=== PATIENT | female | born 1985 | race Caucasian/White ===

== ENCOUNTER 2016-09-03 14:06 | Inpatient (IN) | payer BC, OTHER ==
[2016-09-03 16:33] LABS: Appearance,Urine Clear (Clear); Basophils % (A) 1 %; Bilirubin,Urine Negative (Negative); CH 26.9; CHCM 32.5; Eosinophils # (A) 0.1 k/uL (0-0.7); Eosinophils % (A) 2 %; Glucose,Urine (UA) Negative (Negative); HCT 27.8 % (34.0-46.0); HDW 3.66; HGB 9.1 gm/dL (11.4-16.0); Hypochromasia Slight; Ketones,Urine Negative (Negative); Leukocyte Esterase,Urine Negative (Negative); Luc # (Auto) 0.11; Luc % (Auto) 3; Lymphocytes # (A) 1.2 k/uL (1.0-4.8); Lymphocytes % (A) 30 %; MCH 27.1 pg (25.0-35.0); MCHC 32.6 g/dL (31.0-37.0); MCV 83.3 fL (80.0-100.0); Mean Platelet Volume 6.9; Monocytes # (A) 0.2 k/uL (0-1.0); Monocytes % (A) 4 %; Neutrophils # (A) 2.4 k/uL (1.3-7.7); Neutrophils % (A) 60 %; Nitrite,Urine Negative (Negative); Poikilocytosis Slight; Protein,Urine Negative (Negative); RBC 3.34 m/uL (3.80-5.40); RDW 15.2 % (11.5-15.5); Specific Gravity,Urine 1.006 (1.001-1.035); UA Billing (MACRO vs. MICRO) CHEM; Urobilinogen,Urine <2.0 mg/dL (<2.0); WBC (Perox) 4.53
[2016-09-03 16:41] LABS: INR 1.2 (<1.1); Partial Thromboplastin Time 31.6 sec (22.0-30.0); Prothrombin Time 11.9 sec (9.0-12.0)
[2016-09-03 16:44] LABS: ALT 30 U/L (9-52); AST 26 U/L (14-36); Alkaline Phosphatase 115 U/L (38-126); Anion Gap 9 mmol/L; Blood Urea Nitrogen 17 mg/dL (7-17); Calcium 9.4 mg/dL (8.4-10.2); Carbon Dioxide 30 mmol/L (22-30); Chloride 99 mmol/L (98-107); Glucose 216 mg/dL (74-99); Non-African American GFR(MDRD) 53 (>60 ml/min/1.73 sqM); Potassium 5.1 mmol/L (3.5-5.1); Sodium 138 mmol/L (137-145); Total Bilirubin 0.4 mg/dL (0.2-1.3)
--- NOTE | 2016-09-03 16:58 | XR ---
EXAMINATION TYPE: XR chest 2V DATE OF EXAM: 09/03/2016 4:40 PM COMPARISON: NONE HISTORY: Swelling, shortness of breath TECHNIQUE: Frontal and lateral views of the chest are obtained. FINDINGS: The heart appears enlarged. No pneumonia, pneumothorax, or pleural effusion. Central vascu larity, interstitium are somewhat prominently. Lung volumes somewhat low. IMPRESSION: Suspected expiratory exam, difficult to exclude pulmonary venous hypertension and inters titial edema. Correlate, follow-up is recommended.
[2016-09-03] MEDS ORDERED: SODIUM CHLORIDE 0.9% 500 ML IV STA (18:03)
[2016-09-03] MEDS ORDERED: ACETAMINOPHEN IV (For NPO) 1,000 MG in EMPTY BAG 1 BAG IVPB STA (18:03)
[2016-09-03] MEDS ORDERED: NALOXONE 0.4 MG/ML 1 ML VIAL IV PRN (18:05)
--- NOTE | 2016-09-03 18:23 | ED ---
General Adult HPI - General Chief complaint: Shortness of Breath Stated complaint: NERIS Time Seen by Provider: 09/03/16 15:08 Source: patient Mode of arrival: ambulatory Limitations: no limitations - History of Present Illness Initial comments: 31-year-old female presenting for evaluation of diffuse edema for the last week and one day of chest tightness. She states that over the last week she has gained about 20 pounds and that the swelling is across her lower extremities abdomen chest and upper extremities. She also states she feels it in her face but it's not making her skin as tight as everywhere else. She was admitted to [facility] a couple weeks ago for infection management to an abscess to the left and the right arms that had progressed following I&D. She also states that in June she was admitted to a third hospital where she had an abscess to her skull and became septic to the point of requiring intubation and admission for a month. She has a long-standing history of IV drug abuse and is being seen at [place]. - Related Data Home Medications Medication Instructions Recorded Confirmed ALPRAZolam [Xanax] 1 mg PO TID PRN 09/03/16 09/03/16 Acetaminophen Tab [Tylenol Tab] 650 mg PO Q4H PRN 09/03/16 09/03/16 Gabapentin [Neurontin] 300 mg PO TID 09/03/16 09/03/16 PARoxetine HCL [Paxil] 60 mg PO DAILY 09/03/16 09/03/16 Pregabalin [Lyrica] 100 mg PO HS 09/03/16 09/03/16 QUEtiapine [SEROquel] 50 mg PO TID 09/03/16 09/03/16 QUEtiapine [SEROquel] 100 mg PO HS 09/03/16 09/03/16 Sulfamethox-Tmp 800-160Mg [Bactrim 1 tab PO Q12HR 09/03/16 09/03/16 DS 800-160 mg] Allergies Allergy/AdvReac Type Severity Reaction Status Date / Time ceftriaxone [From Rocephin] Allergy Rash/Hives Verified 09/03/16 15:29 codeine Allergy Rash/Hives Verified 09/03/16 15:29 Penicillins Allergy Rash/Hives Verified 09/03/16 15:29 prochlorperazine Allergy Rash/Hives Verified 09/03/16 15:29 [From Compazine] Review of Systems ROS Statement: Those systems with pertinent positive or pertinent negative responses have been documented in the HPI. General: Patient denies fever, chills,nausea, or vomiting. HEENT: No visual changes. No eye pain. No nasal symptoms. No dysphagia.No odynophagia. No ENT pain. Cardiac: One day of chest heaviness. No palpitations. Diffuse edema. Pulmonary; No dyspnea. Denies cough. GI: No abdominal pain. No diarrhea. No constipation. No bowel habit changes. No melena. No hematochezia. See general. : No dysuria.No hematuria. No hesitancy. No urgency. No renal lithiasis history. Musculoskeletal: No musculoskeletal pain. Orthopedic: Denies fracture history. Integumentary: Denies rash. Denies pruritis. Healing/scarred abscess post I&D to the dorsal hand on the right and the ventral wrist on the left. There is also a shaved spot on her left parietal skull where she had an I&D in July. Neurologic: Denies any lateralizing weakness. Denies numbness. Denies tingling. No seizure activity. Denies TIA or CVA. Heme/Onc: Denies anemia. Denies cancer. Denies adenopathy. ROS Other: All systems not noted in ROS Statement are negative. Past Medical History Past Medical History: Diabetes Mellitus History of Any Multi-Drug Resistant Organisms: MRSA Date of last positivie culture/infection: 2015 MDRO Source:: Skin Past Surgical History: Section, Cholecystectomy Past Psychological History: Anxiety, Bipolar, Depression, Panic Disorder, PTSD Smoking Status: Current every day smoker Past Alcohol Use History: None Reported Past Drug Use History: Heroin General Exam - General Exam Comments Initial Comments: General: The patient is awake and alert, in mild distress. Eye: Pupils are equal, round and reactive to light, extra-ocular movements are intact; there is normal conjunctiva bilaterally. No signs of icterus. Ears, nose, mouth and throat: There are moist mucous membranes and no oral lesions. Neck: The neck is supple, there is no tenderness or JVD. Cardiovascular: There is a regular rate and rhythm. No rub or gallop is appreciated but there is a holosystolic murmur. There is diffuse, tight edema to the bilateral lower extremities and upper extremities. Tenderness to palpation of the abdomen with less noticeable edema in the periphery. Respiratory: Lungs are clear to auscultation, respirations are non-labored, breath sounds are equal. No wheezes, stridor, rales, or rhonchi. Gastrointestinal: Soft, non-distended, mildly tender abdomen without masses or organomegaly noted. There is no rebound or guarding present. No CVA tenderness. Bowel sounds are unremarkable. Back: There is no tenderness to palpation in the midline. There is no obvious deformity. No rashes noted. Musculoskeletal: Normal ROM, no tenderness. Sensation intact. Pulses equal bilaterally 2+. Neurological: CN II-XII intact, There are no obvious motor or sensory deficits. Coordination appears grossly intact. Speech is normal. Skin: Skin is warm and dry and no rashes or lesions are noted. Psychiatric: Cooperative, appropriate mood & affect, normal judgment. Limitations: no limitations Course Vital Signs 09/03/16 09/03/16 09/03/16 14:18 17:24 18:00 Temperature 97.5 F L 97.3 F L Pulse Rate 102 H 82 82 Respiratory 20 16 18 Rate Blood Pressure 103/60 86/49 88/51 O2 Sat by Pulse 96 92 L 95 Oximetry 09/03/16 09/03/16 09/03/16 18:13 21:56 23:34 Temperature 98.1 F Pulse Rate 80 85 95 Respiratory 16 18 16 Rate Blood Pressure 97/56 104/85 83/46 O2 Sat by Pulse 94 L 98 97 Oximetry EKG Findings - EKG Comments: EKG Findings:: EKG shows normal sinus rhythm with a ventricular rate of 85, KINGS 164, QRS 80, QT/QTc 380/452 Medical Decision Making - Medical Decision Making 31-year-old female with past medical history of IV drug abuse and being treated currently at [place] presented for evaluation of diffuse edema for the last week and chest heaviness for the last day. She states that her symptoms began gradually but since then she has gained about 20 pounds and her extremities feel tight due to all the swelling. She has multiple previous admissions for abscesses that had complications once in July requiring admission and ICU treatment due to respiratory failure and then once again a couple weeks ago for failed incision and drainage. Physical examination reveals diffuse edema throughout that is tender to palpation. She has scars from previous abscess incision and drainage as noted in the review of systems and physical exam. There are no new or acute abscesses noted on physical exam. We'll obtain labs, EKG, chest x-ray. Patient reevaluated and had improvement in symptoms. Chest x-ray showed suspected expiratory exam that was difficult to exclude pulmonary venous hypertension and interstitial edema. Concern for infective endocarditis given her cardiac murmur and history of IV heroin abuse. Will send blood cultures and start empiric ABX therapy. The patient was informed of these results and that she would be admitted for further evaluation. Nevaeh Cheng NP was updated on the status of the patient and she accepted the admission for Dr. Godinez without further request. Admission order placed, bed request submitted. - Lab Data Result diagrams: 09/03/16 15:55 09/03/16 15:55 Lab Results 09/03/16 09/03/16 09/03/16 Range/Units 15:55 15:55 15:55 WBC 4.0 (3.8-10.6) k/uL RBC 3.34 L (3.80-5.40) m/uL Hgb 9.1 L (11.4-16.0) gm/dL Hct 27.8 L (34.0-46.0) % MCV 83.3 (80.0-100.0) fL MCH 27.1 (25.0-35.0) pg MCHC 32.6 (31.0-37.0) g/dL RDW 15.2 (11.5-15.5) % Plt Count 382 (150-450) k/uL Neutrophils % 60 % Lymphocytes % 30 % Monocytes % 4 % Eosinophils % 2 % Basophils % 1 % Neutrophils # 2.4 (1.3-7.7) k/uL Lymphocytes # 1.2 (1.0-4.8) k/uL Monocytes # 0.2 (0-1.0) k/uL Eosinophils # 0.1 (0-0.7) k/uL Basophils # 0.0 (0-0.2) k/uL Hypochromasia Slight Poikilocytosis Slight PT (9.0-12.0) sec INR (<1.1) APTT (22.0-30.0) sec Sodium 138 (137-145) mmol/L Potassium 5.1 (3.5-5.1) mmol/L Chloride 99 (98-107) mmol/L Carbon Dioxide 30 (22-30) mmol/L Anion Gap 9 mmol/L BUN 17 (7-17) mg/dL Creatinine 1.18 H (0.52-1.04) mg/dL Est GFR (MDRD) Af Amer >60 (>60 ml/min/1.73 sqM) Est GFR (MDRD) Non-Af 53 (>60 ml/min/1.73 sqM) Glucose 216 H (74-99) mg/dL Calcium 9.4 (8.4-10.2) mg/dL Total Bilirubin 0.4 (0.2-1.3) mg/dL AST 26 (14-36) U/L ALT 30 (9-52) U/L Alkaline Phosphatase 115 (38-126) U/L Troponin I (0.000-0.034) ng/mL NT-Pro-B Natriuret Pep 826 pg/mL Total Protein 7.0 (6.3-8.2) g/dL Albumin 3.5 (3.5-5.0) g/dL Urine Color Urine Appearance (Clear) Urine pH (5.0-8.0) Ur Specific [place] (1.001-1.035) Urine Protein (Negative) Urine Glucose (UA) (Negative) Urine Ketones (Negative) Urine Blood (Negative) Urine Nitrate (Negative) Urine Bilirubin (Negative) Urine Urobilinogen (<2.0) mg/dL Ur Leukocyte Esterase (Negative) Influenza Type A RNA (Not Detectd) Influenza Type B (PCR) (Not Detectd) 09/03/16 09/03/16 09/03/16 Range/Units 15:55 15:55 15:55 WBC (3.8-10.6) k/uL RBC (3.80-5.40) m/uL Hgb (11.4-16.0) gm/dL Hct (34.0-46.0) % MCV (80.0-100.0) fL MCH (25.0-35.0) pg MCHC (31.0-37.0) g/dL RDW (11.5-15.5) % Plt Count (150-450) k/uL Neutrophils % % Lymphocytes % % Monocytes % % Eosinophils % % Basophils % % Neutrophils # (1.3-7.7) k/uL Lymphocytes # (1.0-4.8) k/uL Monocytes # (0-1.0) k/uL Eosinophils # (0-0.7) k/uL Basophils # (0-0.2) k/uL Hypochromasia Poikilocytosis PT 11.9 (9.0-12.0) sec INR 1.2 (<1.1) APTT 31.6 H (22.0-30.0) sec Sodium (137-145) mmol/L Potassium (3.5-5.1) mmol/L Chloride (98-107) mmol/L Carbon Dioxide (22-30) mmol/L Anion Gap mmol/L BUN (7-17) mg/dL Creatinine (0.52-1.04) mg/dL Est GFR (MDRD) Af Amer (>60 ml/min/1.73 sqM) Est GFR (MDRD) Non-Af (>60 ml/min/1.73 sqM) Glucose (74-99) mg/dL Calcium (8.4-10.2) mg/dL Total Bilirubin (0.2-1.3) mg/dL AST (14-36) U/L ALT (9-52) U/L Alkaline Phosphatase (38-126) U/L Troponin I <0.012 (0.000-0.034) ng/mL NT-Pro-B Natriuret Pep pg/mL Total Protein (6.3-8.2) g/dL Albumin (3.5-5.0) g/dL Urine Color Urine Appearance (Clear) Urine pH (5.0-8.0) Ur Specific [place] (1.001-1.035) Urine Protein (Negative) Urine Glucose (UA) (Negative) Urine Ketones (Negative) Urine Blood (Negative) Urine Nitrate (Negative) Urine Bilirubin (Negative) Urine Urobilinogen (<2.0) mg/dL Ur Leukocyte Esterase (Negative) Influenza Type A RNA Not Detected (Not Detectd) Influenza Type B (PCR) Not Detected (Not Detectd) 09/03/16 Range/Units 15:55 WBC (3.8-10.6) k/uL RBC (3.80-5.40) m/uL Hgb (11.4-16.0) gm/dL Hct (34.0-46.0) % MCV (80.0-100.0) fL MCH (25.0-35.0) pg MCHC (31.0-37.0) g/dL RDW (11.5-15.5) % Plt Count (150-450) k/uL Neutrophils % % Lymphocytes % % Monocytes % % Eosinophils % % Basophils % % Neutrophils # (1.3-7.7) k/uL Lymphocytes # (1.0-4.8) k/uL Monocytes # (0-1.0) k/uL Eosinophils # (0-0.7) k/uL Basophils # (0-0.2) k/uL Hypochromasia Poikilocytosis PT (9.0-12.0) sec INR (<1.1) APTT (22.0-30.0) sec Sodium (137-145) mmol/L Potassium (3.5-5.1) mmol/L Chloride (98-107) mmol/L Carbon Dioxide (22-30) mmol/L Anion Gap mmol/L BUN (7-17) mg/dL Creatinine (0.52-1.04) mg/dL Est GFR (MDRD) Af Amer (>60 ml/min/1.73 sqM) Est GFR (MDRD) Non-Af (>60 ml/min/1.73 sqM) Glucose (74-99) mg/dL Calcium (8.4-10.2) mg/dL Total Bilirubin (0.2-1.3) mg/dL AST (14-36) U/L ALT (9-52) U/L Alkaline Phosphatase (38-126) U/L Troponin I (0.000-0.034) ng/mL NT-Pro-B Natriuret Pep pg/mL Total Protein (6.3-8.2) g/dL Albumin (3.5-5.0) g/dL Urine Color Light Yellow Urine Appearance Clear (Clear) Urine pH 7.0 (5.0-8.0) Ur Specific [place] 1.006 (1.001-1.035) Urine Protein Negative (Negative) Urine Glucose (UA) Negative (Negative) Urine Ketones Negative (Negative) Urine Blood Negative (Negative) Urine Nitrate Negative (Negative) Urine Bilirubin Negative (Negative) Urine Urobilinogen <2.0 (<2.0) mg/dL Ur Leukocyte Esterase Negative (Negative) Influenza Type A RNA (Not Detectd) Influenza Type B (PCR) (Not Detectd) Disposition Clinical Impression: Edema, Hyperglycemia Disposition: ADMITTED IP TO THIS HOSP Condition: Stable Decision to Admit Reason: Admit from EC Decision Date: 09/03/16 Decision Time: 18:23
[2016-09-03] MEDS: QUEtiapine 50 MG TAB PO SCH ×2 (21:22→21:49)
[2016-09-03] MEDS: PREGABALIN 100 MG CAP PO SCH (21:49)
[2016-09-03] MEDS: GABAPENTIN 300 MG CAP PO SCH (21:50)
[2016-09-03] MEDS: SULFAMETHOX-TMP 800-160MG 1 EACH TAB PO SCH (21:50)
[2016-09-03] MEDS: KETOROLAC 30 MG/ML 1 ML VIAL IVP PRN (21:54)
[2016-09-03] MEDS ORDERED: IV VANCOMYCIN PER PHARMACY 1 EACH MISC MISCELLANE PRN (23:59)
[2016-09-04] MEDS ORDERED: VANCOMYCIN 1,250 MG in SODIUM CHLORIDE 0.9% 250 ML IVPB SCH ×2 (06:30→08:00)
[2016-09-04 07:52] LABS: Calcium 8.8 mg/dL (8.4-10.2); Potassium 5.6 mmol/L (3.5-5.1)
[2016-09-04 08:16] LABS: Basophils # (A) 0.1 k/uL (0-0.2); Basophils % (A) 1 %; CH 26.4; CHCM 30.3; Eosinophils # (A) 0.1 k/uL (0-0.7); Eosinophils % (A) 3 %; HCT 28.1 % (34.0-46.0); HDW 3.49; HGB 8.9 gm/dL (11.4-16.0); Hypochromasia Marked; Luc % (Auto) 2; Lymphocytes % (A) 24 %; MCH 27.7 pg (25.0-35.0); MCHC 31.6 g/dL (31.0-37.0); MCV 87.7 fL (80.0-100.0); Mean Platelet Volume 6.8; Monocytes # (A) 0.2 k/uL (0-1.0); Monocytes % (A) 5 %; Neutrophils # (A) 2.8 k/uL (1.3-7.7); Neutrophils % (A) 66 %; Poikilocytosis Slight; WBC 4.3 k/uL (3.8-10.6); WBC (Perox) 4.21
[2016-09-04] MEDS: SULFAMETHOX-TMP 800-160MG 1 EACH TAB PO SCH (09:00)
[2016-09-04] MEDS: QUEtiapine 50 MG TAB PO SCH ×4 (09:01→21:15)
[2016-09-04] MEDS: PARoxetine 20 MG TAB PO SCH (09:01)
[2016-09-04] MEDS: GABAPENTIN 300 MG CAP PO SCH ×3 (09:02→21:42)
[2016-09-04] MEDS: ALPRAZolam 0.5 MG TAB PO PRN ×3 (09:06→21:15)
[2016-09-04] MEDS: KETOROLAC 30 MG/ML 1 ML VIAL IVP PRN (09:07)
[2016-09-04] MEDS ORDERED: ALPRAZolam 0.5 MG TAB PO ONE (09:30)
[2016-09-04] MEDS ORDERED: BENZOCAINE/MENTHOL LOZENG 1 EACH LOZENGE MUCOUS MEM PRN (11:15)
[2016-09-04 13:08] LABS: Glucose,Whole Blood 322 mg/dL (75-99)
[2016-09-04] MEDS: INSULIN LISPRO (humaLOG) 300 UNIT/3 ML VIAL SQ SCH ×3 (13:14→21:14)
--- NOTE | 2016-09-04 13:57 | XR ---
EXAMINATION TYPE: XR chest 2V DATE OF EXAM: 09/04/2016 1:39 PM COMPARISON: 09/03/2016 HISTORY: Chest pain TECHNIQUE: Frontal and lateral views of the chest are obtained. FINDINGS: No evidence for pnuemothorax.No pleural effusion. Persistent mild cardiomegaly with interstitial prominence throughout both lung milan. Mild patchy de nsities are noted at the lung bases. The osseous structures are grossly intact. IMPRESSION: 1. Findings may reflect interstitial edema with pulmonary venous congestion. Interstitial process of other etiology is not excluded. Correlate clinically and progress studies are recommended.
[2016-09-04 14:15] LABS: Hemoglobin A1C 8.9 % (4.2-6.1)
[2016-09-04] MEDS ORDERED: ACETAMINOPHEN IV (For NPO) 1,000 MG in EMPTY BAG 1 BAG IVPB PRN (15:30)
[2016-09-04] MEDS: FUROSEMIDE 10 MG/ML 4 ML VIAL IV SCH (17:00)
[2016-09-04 17:26] LABS: Glucose,Whole Blood 208 mg/dL (75-99)
[2016-09-04] MEDS ORDERED: IPRATROPIUM 0.5 MG/2.5 ML NEBU INHALATION PRN (19:37)
[2016-09-04] MEDS ORDERED: LEVALBUTEROL NEB (CONC) 1.25 MG/0.5 ML AMP INHALATION PRN (19:38)
[2016-09-04] MEDS: LEVALBUTEROL NEB (CONC) 1.25 MG/0.5 ML AMP INHALATION SCH (19:58)
[2016-09-04] MEDS: IPRATROPIUM 0.5 MG/2.5 ML NEBU INHALATION SCH (19:58)
[2016-09-04] MEDS ORDERED: LEVALBUTEROL NEB (CONC) 1.25 MG/0.5 ML AMP INHALATION SCH (20:00)
[2016-09-04 21:14] LABS: Glucose,Whole Blood 261 mg/dL (75-99)
[2016-09-04] MEDS: PREGABALIN 100 MG CAP PO SCH (21:15)
--- NOTE | 2016-09-04 22:12 | HP ---
DATE OF ADMISSION: 09/03/2016 CHIEF COMPLAINT: Shortness of breath and generalized weakness. HISTORY OF PRESENT ILLNESS: This 31-year-old woman with a past medical history of multiple medical problems including diabetes mellitus, history of blood clots according to her, skull abscess, incision and drainage, history of MRSA, history of cholecystectomy, history of anxiety, history of bipolar depression, manic with polysubstance abuse is currently a resident of [place]. From [place], the patient was taken to [facility] with complaints of shortness of breath. The patient also apparently was gaining weight and developed generalized edema as well. The patient gained about 20 pounds. Because of increasing difficulty, the patient came to [facility] and was admitted to the hospital for further evaluation and treatment. The patient has right arm abscess. The patient was also admitted to [facility] recently because of the management of the above multiple medical issues. The patient has longstanding history of IV drug abuse. There is no history of fever, rigors or chills. No history of headache, loss of consciousness or seizures. PAST MEDICAL HISTORY: Diabetes type 2, history of blood clots, MRSA, anxiety, bipolar, depression, panic disorder, PTSD. Medications more prior to admission: 1. Tylenol 650 q.4 p.r.n. 2. Bactrim DS one p.o. b.i.d. 3. Seroquel 50 mg t.i.d. 100 mg q.h.s. 4. Xanax 1 mg t.i.d. p.r.n. 5. Lyrica 100 mg q.h.s. 6. Paxil 60 mg p.o. daily. 7. Neurontin 300 mg t.i.d. ALLERGIES: ROCEPHIN, CODEINE, PENICILLIN AND COMPAZINE. FAMILY HISTORY: No history of heart disease or strokes in the family. SOCIAL HISTORY: History of polysubstance abuse including IV drug abuse as mentioned earlier. History of nicotine dependence. REVIEW OF SYSTEMS: ENT: No diminished vision. No diminished hearing. CARDIOVASCULAR: No angina or palpitations. RESPIRATORY: As mentioned earlier. GASTROINTESTINAL: As mentioned earlier. GENITOURINARY: as mentioned earlier. CENTRAL NERVOUS SYSTEM: No numbness or weakness. ALLERGY/IMMUNOLOGY: No asthma or hayfever. MUSCULOSKELETAL: As mentioned earlier. Hematology/oncology: No history of anemia. ENDOCRINE: No history of diabetes, hypothyroidism. CONSTITUTIONAL: As mentioned earlier. DERMATOLOGY: Negative. RHEUMATOLOGY: Negative. PSYCHIATRY: As mentioned earlier. PHYSICAL EXAMINATION: The patient is alert and oriented x3. Pulse is 87, blood pressure 119/77, respiratory rate 16. temperature 97.4, pulse ox 93% on room air. HEENT: Conjunctivae normal. Oral mucosa moist. NECK: No jugular venous distention. No carotid bruit. No lymph node enlargement. CARDIOVASCULAR: S1, S2 muffled. Ejection systolic murmur present. No S3, no S4. RESPIRATORY: Breath sounds diminished at the bases. A few scattered rhonchi and crackles. ABDOMEN: Soft, obese, nontender. No mass palpable. No hepatosplenomegaly. LEGS: Bilateral leg edema. Nervous system: Higher functions as mentioned earlier. Moves all four limbs. Diffuse weakness present. LYMPHATICS: No lymph nodes palpable in the neck, axillae or groin. SKIN: Evidence of right dorsum ulcer presents. Joints: No active arthropathy present. LABS: WBC 4.3, hemoglobin 8.9. Sodium 136, potassium 5.3 and creatinine 1.46. ASSESSMENT: 1. Generalized edema, shortness of breath for evaluation rule out renal disease or congestive heart failure. 2. Diabetes mellitus type 2, uncontrolled. 3. Increased creatinine with possible acute on chronic renal failure. 4. Hyponatremia. 5. Hyperkalemia. 6. Anemia, normocytic, anemia of chronic disease. 7. History of polysubstance abuse. 8. History of diabetes mellitus Type 2. 9. History of clot in the jugular. 10. multiple abscess methicillin-resistant Staphylococcus aureus. 11. History of anxiety, bipolar, depression, panic disorder, PTSD. 12. History of nicotine dependence. 13. FULL CODE. RECOMMENDATIONS AND DISCUSSION: This 31-year-old woman who presented with multiple complex medical issues, we will monitor the patient closely. Continue the current medications. Continue with symptomatic treatment. I would also recommend nephrology and cardiology consultation and 2-D echo will be ordered. Guarded prognosis because of multiple complex medical issues. Further recommendations to follow. Otherwise, DVT prophylaxis. Also recommend the patient to follow up with primary physician closely after discharge. The patient understands. Further recommendations to follow. MTDD
[2016-09-05 02:01] LABS: Glucose,Whole Blood 345 mg/dL (75-99)
[2016-09-05] MEDS: ACETAMINOPHEN TAB 325 MG TAB PO PRN ×2 (06:51→19:30)
[2016-09-05] MEDS ORDERED: VANCOMYCIN 1,250 MG in SODIUM CHLORIDE 0.9% 250 ML IVPB SCH (07:00)
[2016-09-05] MEDS: LEVALBUTEROL NEB (CONC) 1.25 MG/0.5 ML AMP INHALATION SCH ×3 (07:03→20:40)
[2016-09-05] MEDS: IPRATROPIUM 0.5 MG/2.5 ML NEBU INHALATION SCH ×3 (07:03→20:41)
[2016-09-05 07:25] LABS: Glucose,Whole Blood 528 mg/dL (75-99)
[2016-09-05 07:58] LABS: Glucose,Whole Blood 573 mg/dL (75-99)
[2016-09-05 08:17] LABS: Basophils % (A) 1 %; CH 26.8; CHCM 31.2; Eosinophils # (A) 0.1 k/uL (0-0.7); Eosinophils % (A) 2 %; HCT 25.5 % (34.0-46.0); HDW 3.46; HGB 7.9 gm/dL (11.4-16.0); Hypochromasia Moderate; Luc # (Auto) 0.13; Luc % (Auto) 3; Lymphocytes % (A) 20 %; MCH 26.7 pg (25.0-35.0); MCHC 30.9 g/dL (31.0-37.0); MCV 86.3 fL (80.0-100.0); Mean Platelet Volume 7.4; Monocytes # (A) 0.3 k/uL (0-1.0); Monocytes % (A) 5 %; Neutrophils # (A) 3.5 k/uL (1.3-7.7); Neutrophils % (A) 70 %; Poikilocytosis Slight; RBC 2.95 m/uL (3.80-5.40); RDW 15.2 % (11.5-15.5); WBC 5.1 k/uL (3.8-10.6); WBC (Perox) 5.22
[2016-09-05] MEDS: INSULIN LISPRO (humaLOG) 300 UNIT/3 ML VIAL SQ SCH ×3 (08:25→18:32)
[2016-09-05] MEDS ORDERED: INSULIN LISPRO (humaLOG) 300 UNIT/3 ML VIAL SQ ONE (08:52)
[2016-09-05 09:08] LABS: Calcium 8.4 mg/dL (8.4-10.2); Potassium 5.8 mmol/L (3.5-5.1)
[2016-09-05] MEDS: FUROSEMIDE 10 MG/ML 4 ML VIAL IV SCH (09:43)
[2016-09-05] MEDS: PARoxetine 20 MG TAB PO SCH (09:44)
[2016-09-05] MEDS: GABAPENTIN 300 MG CAP PO SCH ×3 (09:44→20:45)
[2016-09-05] MEDS: QUEtiapine 50 MG TAB PO SCH ×4 (09:45→20:44)
[2016-09-05] MEDS: ALPRAZolam 0.5 MG TAB PO PRN ×3 (09:47→23:52)
[2016-09-05] MEDS ORDERED: INSULIN REGULAR 100 UNIT in SODIUM CHLORIDE 0.9% 100 ML IV SCH (10:30)
[2016-09-05 11:53] LABS: Glucose,Whole Blood 372 mg/dL (75-99)
[2016-09-05 13:12] LABS: Glucose,Whole Blood 320 mg/dL (75-99)
[2016-09-05 13:34] LABS: Glucose,Whole Blood 203 mg/dL (75-99)
[2016-09-05 14:04] LABS: Glucose,Whole Blood 78 mg/dL (75-99)
[2016-09-05 14:34] LABS: Glucose,Whole Blood 80 mg/dL (75-99)
--- NOTE | 2016-09-05 14:41 | P.CONS ---
History of Present Illness - Reason for Consult Consult date: 09/05/16 Abscesses - History of Present Illness This is a 31-year-old female who presented to the hospital with shortness of breath. Chest x-ray showed pulmonary venous hypertension and interstitial edema. She has had recent weight gain of 20 pounds. She has a significant history of being at [facility] office and was treated for an abscess to the left wrist and right dorsal hand. She underwent I&D and was discharged. Patient suddenly went to [place] and after there she was started on Bactrim. She states the sites are much better. She also had a recent hospitalization at [facility] which time she was septic from MRSA infections and had pulmonary edema. She had abscesses to her scalp, left antecubital and right hand and foot. She states she was intubated at that time. 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 Patient was started on vancomycin and admitted to the [facility] floor. Blood sugars are currently running in the 500s. BUN 18 and creatinine 1.46 with GFR 42. Nephrology is on consult. Patient did present with tachycardia and hypotension. Influenza testing was negative for AFB. Hemoglobin A1c 8.9. Albumin 3.5. Blood culture showing no growth after 24 hours. Repeat chest x-ray is showing interstitial edema with pulmonary vascular congestion. There is also a cardiology consult in place to rule out endocarditis. Review of Systems All systems: negative Constitutional: Reports fever, Reports weight gain, Denies chills Eyes: denies blurred vision, denies pain Ears, nose, mouth and throat: Denies headache, Denies sore throat Cardiovascular: Reports decreased exercise tolerance, Reports dyspnea on exertion, Reports edema, Reports leg edema, Reports shortness of breath, Denies chest pain Respiratory: Denies cough Gastrointestinal: Denies abdominal pain, Denies diarrhea, Denies nausea, Denies vomiting Genitourinary: Denies dysuria, Denies hematuria Musculoskeletal: Denies myalgias Integumentary: Reports wounds, Denies pruritus, Denies rash Neurological: Denies numbness, Denies weakness Psychiatric: Denies anxiety, Denies depression Endocrine: Denies fatigue, Denies weight change Past Medical History Past Medical History: Diabetes Mellitus Additional Past Medical History / Comment(s): "Blood clot in my jugualr vein", recent L wrist and R hand abscesses with I&Ds, past skull abscess with I&D and sepsis requiring intubation/ventilator for one month, IDDM type I since age 7. History of Any Multi-Drug Resistant Organisms: MRSA Year Discovered:: 2015-July (per patient culture at [facility]) MDRO Source:: Scalp/Hand (per patient) Past Surgical History: Section, Cholecystectomy Additional Past Surgical History / Comment(s): I&D L wrist, R hand and scalp I & D. Past Anesthesia/Blood Transfusion Reactions: Postoperative Nausea & Vomiting ( PONV) Past Psychological History: Anxiety, Bipolar, Depression, Panic Disorder, PTSD Additional Psychological History / Comment(s): Pt currently at [place]. Smoking Status: Current every day smoker Past Alcohol Use History: None Reported Additional Past Alcohol Use History / Comment(s): Pt states she has smoked on and off over the past few yrs-just a few cigarettes a day. 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 Last used heroin a 5 months ago. She denies any other drug use. - Past Family History Father Family Medical History: No Reported History Additional Family Medical History / Comment(s): Father is alive at age 57 with no major medical problems. Mother Family Medical History: No Reported History Additional Family Medical History / Comment(s): Mother is alive at age 49 with no major medical problems. Medications and Allergies Home Medications Medication Instructions Recorded Confirmed Type ALPRAZolam [Xanax] 1 mg PO TID PRN 09/03/16 09/03/16 History Acetaminophen Tab [Tylenol Tab] 650 mg PO Q4H PRN 09/03/16 09/03/16 History Gabapentin [Neurontin] 300 mg PO TID 09/03/16 09/03/16 History PARoxetine HCL [Paxil] 60 mg PO DAILY 09/03/16 09/03/16 History Pregabalin [Lyrica] 100 mg PO HS 09/03/16 09/03/16 History QUEtiapine [SEROquel] 50 mg PO TID 09/03/16 09/03/16 History QUEtiapine [SEROquel] 100 mg PO HS 09/03/16 09/03/16 History Sulfamethox-Tmp 800-160Mg [Bactrim 1 tab PO Q12HR 09/03/16 09/03/16 History DS 800-160 mg] INSULIN LISPRO (HumaLOG) [HumaLOG] 5 units SQ ACHS 09/05/16 09/05/16 History Insulin Glargine [Lantus] 15 unit SQ [id number] 09/05/16 09/05/16 History Insulin Glargine [Lantus] 20 unit SQ HS 09/05/16 09/05/16 History Insulin Lispro [humaLOG] 0 - 8 units SQ ACHS 09/05/16 09/05/16 History Allergies Allergy/AdvReac Type Severity Reaction Status Date / Time ceftriaxone [From Rocephin] Allergy Rash/Hives Verified 09/03/16 15:29 codeine Allergy Rash/Hives Verified 09/03/16 15:29 Penicillins Allergy Rash/Hives Verified 09/03/16 15:29 prochlorperazine Allergy Rash/Hives Verified 09/03/16 15:29 [From Compazine] Physical Exam Vitals: Vital Signs Temp Pulse Pulse Resp BP BP Pulse Ox 09/05/16 09:30 18 99 09/05/16 07:13 100 09/05/16 07:03 92 09/05/16 07:00 97.7 F 125 H 16 142/62 86 L 09/05/16 02:00 98.4 F 120 H 18 121/61 97 09/05/16 00:07 90 09/04/16 23:55 88 09/04/16 20:13 100 09/04/16 20:00 98.4 F 116 H 20 131/73 92 L 09/04/16 19:59 108 H 09/04/16 15:00 97.5 F L 99 16 112/68 94 L 09/04/16 11:03 15 09/04/16 11:02 97.4 F L 87 16 119/79 93 L 09/04/16 09:56 18 126/75 97 Intake and Output 09/04/16 09/05/16 09/05/16 22:59 06:59 14:59 Intake Total 100 0 Balance 100 0 Intake: IV 100 0 ACETAMINOPHEN IV (For NPO 100 ) 1,000 mg In Empty Bag 1 bag @ 400 mls/hr IVPB Q6HR PRN Rx#:[id number] Invasive Line 1 0 Other: Voiding Method Toilet # Voids 3 1 Gen: This is a 31-year-old female. She is sitting up in bed and appears to be in no acute distress. Patient is very angry regarding her home insulin not been resumed and blood sugars running high. She is cooperative. HEENT: Head is atraumatic, normocephalic. Pupils equal, round. Sclerae is anicteric. Mucous members of the mouth are slightly dry. Dentition is in fair order. No thrush noted NECK: Supple. No JVD. No lymphadenopathy. No thyromegaly. LUNGS: Crackles to the bilateral bases. No intercostal retractions. HEART: Regular rate and rhythm. No murmur. ABDOMEN: Soft. Bowel sounds are present. No masses. No tenderness. EXTREMITIES: +2 bilateral pedal edema. Her cells pedis +2 bilaterally. Patient has healing wound to the left radial wrist and right dorsal hand. No drainage. No surrounding erythema or edema. Patient also has healing scars to the left antecubital and right wrist as well as scalp. NEUROLOGICAL: Patient is awake, alert and oriented x3. Cranial nerves 2 through 12 are grossly intact. Results Results: Laboratory Results WBC 5.1 k/uL (3.8-10.6) 09/05/16 07:27 RBC 2.95 m/uL (3.80-5.40) L 09/05/16 07:27 Hgb 7.9 gm/dL (11.4-16.0) L 09/05/16 07:27 Hct 25.5 % (34.0-46.0) L 09/05/16 07:27 MCV 86.3 fL (80.0-100.0) 09/05/16 07:27 MCH 26.7 pg (25.0-35.0) 09/05/16 07:27 MCHC 30.9 g/dL (31.0-37.0) L 09/05/16 07:27 RDW 15.2 % (11.5-15.5) 09/05/16 07:27 Plt Count 269 k/uL (150-450) 09/05/16 07:27 Neutrophils % 70 % 09/05/16 07:27 Lymphocytes % 20 % 09/05/16 07:27 Monocytes % 5 % 09/05/16 07:27 Eosinophils % 2 % 09/05/16 07:27 Basophils % 1 % 09/05/16 07:27 Neutrophils # 3.5 k/uL (1.3-7.7) 09/05/16 07:27 Lymphocytes # 1.0 k/uL (1.0-4.8) 09/05/16 07:27 Monocytes # 0.3 k/uL (0-1.0) 09/05/16 07:27 Eosinophils # 0.1 k/uL (0-0.7) 09/05/16 07:27 Basophils # 0.0 k/uL (0-0.2) 09/05/16 07:27 Hypochromasia Moderate 09/05/16 07:27 Poikilocytosis Slight 09/05/16 07:27 PT 11.9 sec (9.0-12.0) 09/03/16 15:55 INR 1.2 (<1.1) 09/03/16 15:55 APTT 31.6 sec (22.0-30.0) H 09/03/16 15:55 Sodium 131 mmol/L (137-145) L 09/05/16 07:27 Potassium 5.8 mmol/L (3.5-5.1) H 09/05/16 07:27 Chloride 100 mmol/L (98-107) 09/05/16 07:27 Carbon Dioxide 22 mmol/L (22-30) 09/05/16 07:27 Anion Gap 9 mmol/L 09/05/16 07:27 BUN 17 mg/dL (7-17) 09/05/16 07:27 Creatinine 1.34 mg/dL (0.52-1.04) H 09/05/16 07:27 Est GFR (MDRD) Af Amer 56 (>60 ml/min/1.73 sqM) 09/05/16 07:27 Est GFR (MDRD) Non-Af 46 (>60 ml/min/1.73 sqM) 09/05/16 07:27 Glucose 543 mg/dL (74-99) H* 09/05/16 07:27 POC Glucose (mg/dL) 80 mg/dL (75-99) 09/05/16 14:29 POC Glu [place] ID VanLashay Espinal 09/05/16 14:[address] Glu mg/dL 209 mg/dL 09/04/16 07:08 Hemoglobin A1c 8.9 % (4.2-6.1) H 09/04/16 07:08 Calcium 8.4 mg/dL (8.4-10.2) 09/05/16 07:27 Total Bilirubin 0.4 mg/dL (0.2-1.3) 09/03/16 15:55 AST 26 U/L (14-36) 09/03/16 15:55 ALT 30 U/L (9-52) 09/03/16 15:55 Alkaline Phosphatase 115 U/L (38-126) 09/03/16 15:55 Troponin I <0.012 ng/mL (0.000-0.034) 09/03/16 15:55 NT-Pro-B Natriuret Pep 826 pg/mL 09/03/16 15:55 Total Protein 7.0 g/dL (6.3-8.2) 09/03/16 15:55 Albumin 3.5 g/dL (3.5-5.0) 09/03/16 15:55 Urine Color Light Yellow 09/03/16 15:55 Urine Appearance Clear (Clear) 09/03/16 15:55 Urine pH 7.0 (5.0-8.0) 09/03/16 15:55 Ur Specific [place] 1.006 (1.001-1.035) 09/03/16 15:55 Urine Protein Negative (Negative) 09/03/16 15:55 Urine Glucose (UA) Negative (Negative) 09/03/16 15:55 Urine Ketones Negative (Negative) 09/03/16 15:55 Urine Blood Negative (Negative) 09/03/16 15:55 Urine Nitrate Negative (Negative) 09/03/16 15:55 Urine Bilirubin Negative (Negative) 09/03/16 15:55 Urine Urobilinogen <2.0 mg/dL (<2.0) 09/03/16 15:55 Ur Leukocyte Esterase Negative (Negative) 09/03/16 15:55 Influenza Type A RNA Not Detected (Not Detectd) 09/03/16 15:55 Influenza Type B (PCR) Not Detected (Not Detectd) 09/03/16 15:55 CBC & Chem 7: 09/05/16 07:27 09/06/16 06:32 Labs: Abnormal Lab Results - Last 24 Hours (Table) 09/04/16 09/04/16 09/04/16 Range/Units 07:08 13:05 17:22 RBC (3.80-5.40) m/uL Hgb (11.4-16.0) gm/dL Hct (34.0-46.0) % MCHC (31.0-37.0) g/dL Sodium (137-145) mmol/L Potassium (3.5-5.1) mmol/L Creatinine (0.52-1.04) mg/dL Glucose (74-99) mg/dL POC Glucose (mg/dL) 322 H 208 H (75-99) mg/dL Hemoglobin A1c 8.9 H (4.2-6.1) % 09/04/16 09/05/16 09/05/16 Range/Units 21:12 02:00 07:22 RBC (3.80-5.40) m/uL Hgb (11.4-16.0) gm/dL Hct (34.0-46.0) % MCHC (31.0-37.0) g/dL Sodium (137-145) mmol/L Potassium (3.5-5.1) mmol/L Creatinine (0.52-1.04) mg/dL Glucose (74-99) mg/dL POC Glucose (mg/dL) 261 H 345 H 528 H (75-99) mg/dL Hemoglobin A1c (4.2-6.1) % 09/05/16 09/05/16 09/05/16 Range/Units 07:27 07:27 07:55 RBC 2.95 L (3.80-5.40) m/uL Hgb 7.9 L (11.4-16.0) gm/dL Hct 25.5 L (34.0-46.0) % MCHC 30.9 L (31.0-37.0) g/dL Sodium 131 L (137-145) mmol/L Potassium 5.8 H (3.5-5.1) mmol/L Creatinine 1.34 H (0.52-1.04) mg/dL Glucose 543 H* (74-99) mg/dL POC Glucose (mg/dL) 573 H (75-99) mg/dL Hemoglobin A1c (4.2-6.1) % Microbiology - Last 24 Hours (Table) 09/04/16 01:43 Blood Culture - Preliminary Blood No Growth after 24 hours Assessment and Plan Plan: This is a 31-year-old female presenting with sepsis with fever, tachycardia and hypotension with history of heroin IV drug abuse and recent history of multiple abscesses treated at [facility]. We will ask that culture reports be obtained from [facility]. Patient will complete this dose of IV vancomycin. IV antibiotics will be changed to daptomycin. Local wound care will be addressed. Tetanus status was last updated less than 5 years. Blood culture is showing no growth at 24 hours. Continue supportive care. Further recommendations as patient progresses. The above dictated assessment and findings were discussed with Dr. Cardenas. The impression and plan of care have been directed as dictated. Quiana Rahman nurse practitioner acting as scribe for Dr. Cardenas. Time with Patient: Greater than 30
[2016-09-05 15:10] LABS: Glucose,Whole Blood 75 mg/dL (75-99)
[2016-09-05 15:31] LABS: Glucose,Whole Blood 88 mg/dL (75-99)
[2016-09-05 17:20] LABS: Glucose,Whole Blood 93 mg/dL (75-99)
[2016-09-05] MEDS ORDERED: LORazepam 2 MG/ML SYRINGE IV PRN (18:45)
--- NOTE | 2016-09-05 19:19 | PN ---
DATE OF SERVICE: 09/05/2016 This 31-year-old woman who was admitted with generalized edema was evaluated to rule out the congestive heart failure. The patient also diabetes mellitus type 2 also. The patient is also having multiple skin abscesses which was recently treated at [facility]. The patient is on IV vancomycin. There is a scant IV access. PAST MEDICAL HISTORY: Reviewed. REVIEW OF SYSTEMS: CARDIOVASCULAR: No angina or palpitations. RESPIRATORY: As mentioned earlier. GI: As mentioned earlier. GENITOURINARY: No dysuria. Current medications are reviewed and include: 1. Tylenol 650 q.4 p.r.n. 2. DuoNeb q.i.d. and p.r.n. 3. Xanax 1 mg p.o. t.i.d. 5. Lasix 40 mg IV daily. 6. Neurontin 300 mg p.o. t.i.d. 7. Humalog 8 units a.c. t.i.d. 8. Atrovent Xopenex t.i.d. and p.r.n. 9. Narcan 0.2 q.2 p.r.n. 10. Paxil 60 mg 11. Lyrica 100 milligrams p.o. q.h.s. 12. Seroquel 50 mg p.o. t.i.d. and 100 mg q.h.s. 13. Bactrim DS one p.o. b.i.d. 14. Vancomycin 250 mg q.24 hours. PHYSICAL EXAMINATION: Patient is alert, oriented x3. Pulse is 125, blood pressure 146/62, respiratory rate 16, temperature 97.9, pulse ox 86% on 4 liters. HEENT: Conjunctivae normal. Oral mucosa moist. NECK: No jugular venous distention. No carotid bruit. CARDIOVASCULAR: S1, S2 muffled. RESPIRATORY: Breath sounds diminished at the bases. Bilateral scattered rhonchi and crackles. ABDOMEN: Soft, obese, nontender. Legs: No edema. No swelling. Nervous system: No focal deficits. LABS: Sodium 130, potassium 5.8, creatinine is 1.34, hemoglobin 7.9. ASSESSMENT: 1. Shortness of breath with generalized edema rule out congestive heart failure acute exacerbation. 2. Diabetes mellitus type 2, uncontrolled. 3. Increased creatinine with possible acute on chronic renal failure. 4. Hyponatremia. 5. Hyperkalemia. 6. Anemia, normocytic, anemia of chronic disease. 7. History of skin abscesses related to IV abscess. 8. History of polysubstance abuse. 9. History of diabetes mellitus type 2. 10. History of clot in the jugular system. 11. History of Methicillin-resistant Staph aureus. 12. History of anxiety, bipolar, depression, panic disorder, PTSD. 13. History of nicotine dependence. 14. FULL CODE. RECOMMENDATIONS AND DISCUSSION: This 31-year-old woman, presented with multiple medical issues. At this time I would recommend to continue the current medications and symptomatic treatment. Otherwise, continue with monitor blood sugars, continue the Lasix, 2-D echo with Doppler. Repeat labs ordered. Guarded prognosis because of multiple complex medical issues. Further recommendations to follow. MTDD
[2016-09-05 19:51] LABS: Glucose,Whole Blood 254 mg/dL (75-99)
--- NOTE | 2016-09-05 20:04 | CONS ---
DATE OF CONSULTATION: 09/05/2016 REASON FOR CONSULTATION: Substance abuse. HISTORY OF PRESENT ILLNESS: Patient is a 31-year-old single female who was at [place] for the last couple of days, then was transferred to [facility] with the chief complaint of shortness of breath. Patient reports a history of IV heroin since age 28 and she tried 2 substance abuse programs; however, according to what she said, "I never had been clean except when I was on methadone." Patient stated that she was [facility] 5 months for violation of her probation, but prior to this she was on methadone 40 mg daily. Patient denied any current psychotic feature. She denied any depressive symptom or anxiety symptom. She denied any other drug use. PAST PSYCHIATRIC HISTORY: She was admitted twice for substance abuse rehab. She was in [facility] for 4 weeks, but she did admit that she never had been clean at all until she started on methadone. She was referred to [facility] for substance abuse and at that time she was given Seroquel for anxiety. However, she did admit that she has been having a prescription for Xanax, prescribed by her primary care physician. Recently she did admit herself to [place] 2 or 3 days ago. PAST MEDICAL HISTORY: 1. History of MRSA. 2. Status post section. 3. Status post cholecystectomy. 4. Diabetes mellitus with peripheral neuropathy. 5. Past history of depression versus PTSD. FAMILY HISTORY OF PSYCHIATRIC ILLNESS: Patient's mother is in recovery from heroin addiction. ALLERGIES: 1. CODEINE. 2. PENICILLIN. 3. ROCEPHIN. Home medications include: 1. Insulin Lantus. 2. Xanax 1 mg 3 times a day as needed. 3. Neurontin (gabapentin) 300 mg 3 times a day. 4. Paxil 60 mg daily. 5. Lyrica 100 mg at bedtime. 6. Seroquel for anxiety 50 mg 3 times a day and 100 mg at bedtime. LEGAL PROBLEMS: As mentioned before, patient was on probation for drug possession and due to violation of her probation she was in [facility] 5 months. BRIEF SOCIAL HISTORY: Patient is the oldest of 3. She has 2 younger sisters. She was able to earn her GED and she used to work in retail. She was involved a relationship for a couple of years and she has a son who is 8 years of age. Currently her son is living with his father, but patient has visitation rights. MENTAL STATUS EXAMINATION: Patient is a 31-year-old female who was sitting in her bed. She gave good eye contact. She was cooperative. She did admit that she has been struggling with heroin addiction, and her only treatment is "to be on methadone as maintenance dose." Her speech is coherent and goal-directed. She denied any psychotic features. She denied any suicidal or homicidal ideation. She is alert, oriented to place, person and time. Her insight and judgment are fair. IMPRESSION/DIAGNOSES: 1. Opium use disorder. 2. 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 3. History of atypical bipolar disorder versus post-traumatic stress disorder. RECOMMENDATION AND PLAN: I do recommend referring the patient back to [facility] to continue her inpatient substance abuse treatment. I did give the patient a list of all the outpatient substance abuse programs and also [facility] outpatient. Prognosis is guarded.
[2016-09-05] MEDS: PREGABALIN 100 MG CAP PO SCH (20:44)
[2016-09-05] MEDS: ONDANSETRON 4 MG/2 ML VIAL IVP PRN (20:45)
[2016-09-05] MEDS: HYDROcodone/APAP 5-325MG 1 EACH TAB PO PRN (20:56)
[2016-09-05] MEDS ORDERED: INSULIN GLARGINE 100 UNIT/ML 10 ML VIAL SQ SCH (21:00)
[2016-09-05] MEDS ORDERED: INSULIN LISPRO (humaLOG) 300 UNIT/3 ML VIAL SQ SCH ×2 (21:00)
--- NOTE | 2016-09-05 22:19 | P.CON ---
Consult Note - . Consult date: 09/05/16 Assessment/Plan:: This is a 31-year-old female who presented to the hospital with shortness of breath. Chest x-ray showed pulmonary venous hypertension and interstitial edema. She has had recent weight gain of 20 pounds. She has a significant history of being at [facility] office and was treated for an abscess to the left wrist and right dorsal hand. She underwent I&D and was discharged. Patient suddenly went to [place] and after there she was started on Bactrim. She states the sites are much better. She also had a recent hospitalization at [facility] which time she was septic from MRSA infections and had pulmonary edema. She had abscesses to her scalp, left antecubital and right hand and foot. She states she was intubated at that time. 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 Patient was started on vancomycin and admitted to the [facility] floor. Blood sugars are currently running in the 500s. BUN 18 and creatinine 1.46 with GFR 42. Nephrology is on consult. Patient did present with tachycardia and hypotension. Influenza testing was negative for AFB. Hemoglobin A1c 8.9. Albumin 3.5. Blood culture showing no growth after 24 hours. Repeat chest x-ray is showing interstitial edema with pulmonary vascular congestion. There is also a cardiology consult in place to rule out endocarditis. Please see the consult note as dictated by [employer] Mrs Quiana Rahman. 31-year-old woman who is a very complex history with a bout of sepsis. Is evidence of recreational drug use with heroin. Via injection drug use. She has a history of recent MRSA infection and sepsis. Was cared for at outside hospital with shock and respiratory failure. Is recently been on trimethoprim sulfamethoxazole. She does have some abscess on the dorsum of the right hand and the volar aspect of the left wrist. These areas have been incised and drained showing some improvement. She is complaining of some pain at these areas. Is having great difficulties with some nausea and emesis but was able to eat her dinner quite well earlier. Admission and patient was having fever and tachycardia and relative hypotension and concern was concerned to sepsis. Antibiotic therapy is initiated with vancomycin. However with her significant history and some renal insufficiency vancomycin will be altered to daptomycin for the next dose. When she is improved and ready for discharge to home and set up trimethoprim sulfamethoxazole use doxycycline. Patient is complaining of severe pain, relates she does have some difficulty with codeine but has taken some [place] in the past and that will be attempted. Toradol was considered but with her elevated creatinine is not an option at this time. With her smoking history echocardiogram impresses to ensure she does not have underlying endocarditis and blood cultures are in process. I agree with evaluation, assessment and plan as dictated by nurse practitioner Mrs. Quiana Rahman.
[2016-09-05] MEDS: DAPTOmycin 500 MG in SODIUM CHLORIDE 0.9% 50 ML IV SCH (23:46)
[2016-09-05 23:51] LABS: Glucose,Whole Blood 381 mg/dL (75-99)
[2016-09-06] MEDS ORDERED: INSULIN REGULAR 100 UNIT in SODIUM CHLORIDE 0.9% 100 ML IV SCH (01:00)
[2016-09-06 02:57] LABS: Glucose,Whole Blood 275 mg/dL (75-99)
[2016-09-06 05:17] LABS: Glucose,Whole Blood 44 mg/dL (75-99)
[2016-09-06 05:24] LABS: Glucose,Whole Blood 46 mg/dL (75-99)
[2016-09-06] MEDS: ACETAMINOPHEN TAB 325 MG TAB PO PRN (05:51)
[2016-09-06 05:59] LABS: Glucose,Whole Blood 76 mg/dL (75-99)
[2016-09-06 06:17] LABS: Glucose,Whole Blood 146 mg/dL (75-99)
[2016-09-06 07:00] LABS: Glucose,Whole Blood 168 mg/dL (75-99)
[2016-09-06 07:21] LABS: Anion Gap 10 mmol/L; Blood Urea Nitrogen 19 mg/dL (7-17); Calcium 9.1 mg/dL (8.4-10.2); Carbon Dioxide 25 mmol/L (22-30); Chloride 105 mmol/L (98-107); Glucose 151 mg/dL (74-99); Non-African American GFR(MDRD) 50 (>60 ml/min/1.73 sqM); Potassium 5.1 mmol/L (3.5-5.1); Sodium 140 mmol/L (137-145)
[2016-09-06] MEDS ORDERED: INSULIN GLARGINE 100 UNIT/ML 10 ML VIAL SQ SCH (07:30)
[2016-09-06] MEDS: IPRATROPIUM-ALBUTEROL 3 ML NEB INHALATION SCH ×4 (07:52→19:50)
[2016-09-06] MEDS: INSULIN LISPRO (humaLOG) 300 UNIT/3 ML VIAL SQ SCH ×5 (08:30→21:46)
[2016-09-06] MEDS: FUROSEMIDE 10 MG/ML 4 ML VIAL IV SCH (08:32)
[2016-09-06] MEDS: GABAPENTIN 300 MG CAP PO SCH ×3 (08:33→21:50)
[2016-09-06] MEDS: PARoxetine 20 MG TAB PO SCH (08:33)
[2016-09-06] MEDS: QUEtiapine 50 MG TAB PO SCH ×4 (08:34→21:51)
[2016-09-06] MEDS: ALPRAZolam 0.5 MG TAB PO PRN ×3 (08:36→22:56)
[2016-09-06 08:50] LABS: Glucose,Whole Blood 282 mg/dL (75-99)
[2016-09-06 08:53] LABS: Basophils % (A) 1 %; CH 27.1; CHCM 32.5; Eosinophils # (A) 0.1 k/uL (0-0.7); Eosinophils % (A) 4 %; HDW 3.58; HGB 8.4 gm/dL (11.4-16.0); Hypochromasia Slight; Luc # (Auto) 0.12; Luc % (Auto) 4; Lymphocytes # (A) 0.8 k/uL (1.0-4.8); Lymphocytes % (A) 27 %; MCH 27.1 pg (25.0-35.0); MCHC 32.3 g/dL (31.0-37.0); MCV 83.8 fL (80.0-100.0); Mean Platelet Volume 7.9; Monocytes # (A) 0.2 k/uL (0-1.0); Monocytes % (A) 8 %; Neutrophils # (A) 1.7 k/uL (1.3-7.7); Neutrophils % (A) 56 %; Poikilocytosis Slight; RDW 15.6 % (11.5-15.5); WBC (Perox) 3.13
[2016-09-06] MEDS: HYDROcodone/APAP 5-325MG 1 EACH TAB PO PRN ×3 (10:01→20:39)
[2016-09-06 10:52] LABS: Glucose,Whole Blood 458 mg/dL (75-99)
[2016-09-06] MEDS ORDERED: INSULIN GLARGINE 100 UNIT/ML 10 ML VIAL SQ STA (11:10)
[2016-09-06] MEDS ORDERED: INSULIN LISPRO (humaLOG) 300 UNIT/3 ML VIAL SQ ONE (11:11)
[2016-09-06 11:42] LABS: Glucose,Whole Blood 488 mg/dL (75-99)
[2016-09-06 12:28] LABS: Glucose,Whole Blood 436 mg/dL (75-99)
[2016-09-06] MEDS: ONDANSETRON 4 MG/2 ML VIAL IVP PRN ×2 (12:31→21:34)
[2016-09-06 13:15] LABS: Glucose,Whole Blood 383 mg/dL (75-99)
[2016-09-06 14:09] VITALS: BMI 29.9
[2016-09-06 14:59] LABS: Hemoglobin A1C 8.4 % (4.2-6.1)
[2016-09-06 16:17] LABS: Glucose,Whole Blood 111 mg/dL (75-99)
--- NOTE | 2016-09-06 16:17 | ECHOF ---
Referral Reason:Sepsis,R/O endocarditis MEASUREMENTS -------- HEIGHT: 154.9 cm WEIGHT: 73.5 kg BP: 114/72 RVIDd: 2.4 cm (< 3.3) IVSd: 0.7 cm (0.6 - 1.1) LVIDd: 3.9 cm (3.9 - 5.3) LVPWd: 1.0 cm (0.6 - 1.1) IVSs: 1.3 cm LVIDs: 2.4 cm LVPWs: 1.6 cm LA Diam: 3.0 cm (2.7 - 3.8) Ao Diam: 2.2 cm (2.0 - 3.7) AV Cusp: 1.2 cm (1.5 - 2.6) LA Diam: 3.1 cm (2.7 - 3.8) MV EXCURSION: 14.881 mm (> 18.000) MV EF SLOPE: 31 mm/s (70 - 150) EPSS: 0.2 cm MV E Keith: 1.34 m/s MV DecT: 198 ms MV A Keith: 1.02 m/s MV E/A Ratio: 1.31 AV maxP.55 mmHg AV meanP.76 mmHg RAP: 5.00 mmHg RVSP: 33.46 mmHg FINDINGS -------- Resting tachycardia (HR>100bpm). This was a technically good study. Left ventricular wall thickness is normal. Overall left ventricular systolic function is normal with, an EF between 65 - 70 %. The right ventricle is normal in size. The left atrial size is normal. The right atrium is normal in size. Aortic valve is trileaflet and is mildly thickened. Peak/mean gradient across the Aortic Valve is 22.55mmHg / 11.76mmHg. Mild mitral annular calcification present. There is trace mitral regurgitation. Trace tricuspid regurgitation present. Right ventricular systolic pressure is normal at < 35 mmHg. Trace/mild (physiologic) pulmonic regurgitation. The aortic root size is normal. Normal inferior vena cava with normal inspiratory collapse consistent with estimated right atrial pressure of 5 mmHg. There is no pericardial effusion. CONCLUSIONS -------- 1. Resting tachycardia (HR>100bpm). 2. Mild mitral annular calcification present. 3. There is trace mitral regurgitation. 4. Trace tricuspid regurgitation present. 5. Right ventricular systolic pressure is normal at < 35 mmHg. 6. Trace/mild (physiologic) pulmonic regurgitation. 7. The aortic root size is normal. 8. There is no pericardial effusion. 9. This was a technically good study. 10. Left ventricular wall thickness is normal. 11. Overall left ventricular systolic function is normal with, an EF between 65 - 70 %. 12. The right ventricle is normal in size. 13. The left atrial size is normal. 14. The right atrium is normal in size. 15. Aortic valve is trileaflet and is mildly thickened. 16. Peak/mean gradient across the Aortic Valve is 22.55mmHg / 11.76mmHg. CERTIFIED NOVELL ENGINEER: Thu Jeff RDCS
--- NOTE | 2016-09-06 17:00 | P.CRDCN ---
History of Present Illness Consult date: 09/06/16 History of present illness: This is a 31-year-old female with history of uterine drug abuse and multiple recent admissions for several abscesses, is recently admitted to the hospital with complaints of increasing shortness of breath and generalized edema. Patient is unable to give a detailed history but main symptom that she complains about is generalized swelling. There is history that she was treated for sepsis and MRSA infections at [facility]. Apparently she had pulmonary edema requiring intubation at the time. Patient is admitted at the site tachycardia and hypotension. Patient has evidence of anemia and also leukopenia. Her chest x-ray on admission showed what looks to Justin she show edema with possible vascular congestion. Patient is being treated with vancomycin. Blood cultures are pending at this time. She denies any chest pain. Her proBNP level is mildly elevated. Echocardiogram done at different hospital showed normal LV function. Echocardiogram done here in the hospital showed also normal LV function without any significant valvular abnormalities. There is some increasing gradient across the aortic valve which could be related to high flow and anemia. No definite vegetations are noted on this transthoracic echocardiogram. Some of the findings in the lungs could be related to interstitial lung disease. I would continue current medical therapy. May consider transfusing her because of severe anemia that could be response to some of the symptoms. If she has any persistent fevers and positive cultures, a TIFF examination may be constricted. But on transthoracic echocardiogram , all valves aren't well visualized. Further recommendations to follow Review of Systems As per the chart Past Medical History Past Medical History: Diabetes Mellitus Additional Past Medical History / Comment(s): "Blood clot in my jugualr vein", recent L wrist and R hand abscesses with I&Ds, past skull abscess with I&D and sepsis requiring intubation/ventilator for one month, IDDM type I since age 7. History of Any Multi-Drug Resistant Organisms: MRSA Date of last positivie culture/infection: 2015-July (per patient culture at [facility]) MDRO Source:: Scalp/Hand (per patient) Past Surgical History: Section, Cholecystectomy Additional Past Surgical History / Comment(s): I&D L wrist, R hand and scalp I & D. Past Anesthesia/Blood Transfusion Reactions: Postoperative Nausea & Vomiting ( PONV) Past Psychological History: Anxiety, Bipolar, Depression, Panic Disorder, PTSD Additional Psychological History / Comment(s): Pt currently at [place]. Smoking Status: Current every day smoker Past Alcohol Use History: None Reported Additional Past Alcohol Use History / Comment(s): Pt states she has smoked on and off over the past few yrs-just a few cigarettes a day. 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 Last used heroin a 5 months ago. She denies any other drug use. - Past Family History Father Family Medical History: No Reported History Additional Family Medical History / Comment(s): Father is alive at age 57 with no major medical problems. Mother Family Medical History: No Reported History Additional Family Medical History / Comment(s): Mother is alive at age 49 with no major medical problems. Medications and Allergies Home Medications Medication Instructions Recorded Confirmed Type ALPRAZolam [Xanax] 1 mg PO TID PRN 09/03/16 09/03/16 History Acetaminophen Tab [Tylenol Tab] 650 mg PO Q4H PRN 09/03/16 09/03/16 History Gabapentin [Neurontin] 300 mg PO TID 09/03/16 09/03/16 History PARoxetine HCL [Paxil] 60 mg PO DAILY 09/03/16 09/03/16 History Pregabalin [Lyrica] 100 mg PO HS 09/03/16 09/03/16 History QUEtiapine [SEROquel] 50 mg PO TID 09/03/16 09/03/16 History QUEtiapine [SEROquel] 100 mg PO HS 09/03/16 09/03/16 History Sulfamethox-Tmp 800-160Mg [Bactrim 1 tab PO Q12HR 09/03/16 09/03/16 History DS 800-160 mg] INSULIN LISPRO (HumaLOG) [HumaLOG] 5 units SQ ACHS 09/05/16 09/05/16 History Insulin Glargine [Lantus] 15 unit SQ [id number] 09/05/16 09/05/16 History Insulin Glargine [Lantus] 20 unit SQ HS 09/05/16 09/05/16 History Insulin Lispro [humaLOG] 0 - 8 units SQ ACHS 09/05/16 09/05/16 History Allergies Allergy/AdvReac Type Severity Reaction Status Date / Time ceftriaxone [From Rocephin] Allergy Rash/Hives Verified 09/03/16 15:29 codeine Allergy Rash/Hives Verified 09/03/16 15:29 Penicillins Allergy Rash/Hives Verified 09/03/16 15:29 prochlorperazine Allergy Rash/Hives Verified 09/03/16 15:29 [From Compazine] Physical Exam Vitals: Vital Signs Temp Pulse Pulse Resp BP Pulse Ox 09/06/16 16:22 98 09/06/16 16:10 94 09/06/16 14:51 97.5 F L 108 H 18 104/59 94 L 09/06/16 10:25 96 09/06/16 10:11 92 09/06/16 08:31 114/72 09/06/16 07:00 97.3 F L 98 16 99/60 92 L 09/06/16 00:05 97.5 F L 86 16 104/58 99 09/05/16 21:56 97.9 F 98 18 126/76 100 09/05/16 20:52 104 H 09/05/16 20:41 104 H Intake and Output 09/06/16 09/06/16 09/06/16 06:59 14:59 22:59 Intake Total 34.517 480 Output Total 3 Balance 34.517 477 Intake: Intake, IV Titration 18.517 Amount Insulin Regular 100 unit 18.517 In Sodium Chloride 0.9% 100 ml @ Titrate IV .Q0M [facility] Rx#:[id number] Oral 16 480 Output: Urine 3 Other: # Voids 1 Weight 71.838 kg Patient Weight 09/07/16 06:59 Weight 71.838 kg GENERAL EXAM: Patient is alert and sleepy and barely wakes up and communicates HEENT: Normocephalic. Normal reaction of pupils, equal size, normal range of extraocular motion. No erythema or exudates in the throat. NECK: No masses, no nuchal rigidity. CHEST: No chest wall deformity. LUNGS: Diffuse rhonchi and rales HEART: S1 and S2 normal systolic murmur heard along left sternal border ABDOMEN: Distended SKIN: Has evidence of healing abscesses CENTRAL NERVOUS SYSTEM: No focal deficits. EXTREMITIES: No cyanosis, clubbing or edema. Results 09/06/16 06:32 09/06/16 06:32 CBC 01/25/17 Range/Units 06:32 WBC 3.0 L (3.8-10.6) k/uL RBC 3.10 L (3.80-5.40) m/uL Hgb 8.4 L (11.4-16.0) gm/dL Hct 26.0 L (34.0-46.0) % Plt Count 241 (150-450) k/uL Comprehensive Metabolic Panel 09/06/16 Range/Units 06:32 Sodium 140 (137-145) mmol/L Potassium 5.1 (3.5-5.1) mmol/L Chloride 105 (98-107) mmol/L Carbon Dioxide 25 (22-30) mmol/L BUN 19 H (7-17) mg/dL Creatinine 1.26 H (0.52-1.04) mg/dL Glucose 151 H (74-99) mg/dL Calcium 9.1 (8.4-10.2) mg/dL Current Medications Generic Name Dose Route Start Last Admin Trade Name Freq PRN Reason Stop Dose Admin Acetaminophen 650 mg 09/03/16 18:09 09/06/16 05:51 Tylenol Tab PO 650 mg Q4H PRN Administration PAIN/HEADACHE Acetaminophen/Hydrocodone Bitart 1 each 09/05/16 20:13 09/06/16 15:13 [place] 5-325 PO 1 each Q6HR PRN Administration Pain Albuterol/Ipratropium 3 ml 09/06/16 08:00 09/06/16 16:10 Duoneb 0.5 Mg-3 Mg/3 Ml Soln INHALATION 3 ml RT-QID [facility] Administration Alprazolam 1 mg 09/03/16 18:09 09/06/16 15:13 Xanax PO 1 mg TID PRN Administration Anxiety Benzocaine/Menthol 1 each 09/04/16 11:15 09/04/16 13:17 Cepacol Lozenge MUCOUS MEM 1 each Q4HR PRN Administration Cough Furosemide 40 mg 09/04/16 15:45 09/06/16 08:32 Lasix IV 40 mg DAILY [facility] Administration Gabapentin 300 mg 09/03/16 22:00 09/06/16 15:13 Neurontin PO 300 mg TID [facility] Administration Daptomycin 500 mg/ Sodium 50 mls @ 100 mls/hr 09/05/16 23:00 09/05/16 23:46 Chloride IV 100 mls/hr HS [facility] Administration Insulin Glargine 15 unit 09/07/16 09:00 Lantus SQ 0900 [facility] Insulin Glargine 20 unit 09/06/16 21:00 Lantus SQ HS [facility] Insulin Human Lispro 7 unit 09/06/16 17:30 Humalog SQ AC-TID [facility] Insulin Human Lispro 0 unit 09/06/16 17:30 Humalog SQ [id number] [facility] Protocol Lorazepam 1 mg 09/05/16 18:45 Ativan IV Q6HR PRN Anxiety Naloxone HCl 0.2 mg 09/03/16 18:05 Narcan IV Q2M PRN Opioid Reversal Ondansetron HCl 4 mg 09/05/16 20:11 09/06/16 12:31 Zofran IVP 4 mg Q6HR PRN Administration Nausea And Vomiting Paroxetine HCl 60 mg 09/04/16 09:00 09/06/16 08:33 Paxil PO 60 mg DAILY [facility] Administration Pregabalin 100 mg 09/03/16 21:00 09/05/16 20:44 Lyrica PO 100 mg HS [facility] Administration Quetiapine Fumarate 100 mg 09/03/16 21:00 09/05/16 20:44 Seroquel PO 100 mg HS [facility] Administration Quetiapine Fumarate 50 mg 09/03/16 17:00 09/06/16 12:31 Seroquel PO 50 mg 0900,1300,1700 [facility] Administration Trimethoprim/Sulfamethoxazole 1 each 09/03/16 21:00 09/04/16 09:00 Bactrim Ds PO 1 each Q12HR [facility] Administration Intake and Output 09/06/16 09/06/16 09/06/16 06:59 14:59 22:59 Intake Total 34.517 480 Output Total 3 Balance 34.517 477 Intake: Intake, IV Titration 18.517 Amount Insulin Regular 100 unit 18.517 In Sodium Chloride 0.9% 100 ml @ Titrate IV .Q0M [facility] Rx#:[id number] Oral 16 480 Output: Urine 3 Other: # Voids 1 Weight 71.838 kg Patient Weight 09/07/16 06:59 Weight 71.838 kg 09/06/16 06:32 09/06/16 06:32 EKG Interpretations (text) Sinus tachycardia Assessment and Plan (1) History of drug abuse Status: Acute (2) Edema Status: Acute (3) Pulmonary edema Status: Acute (4) History of MRSA infection Status: Acute Plan: At this point, transthoracic echo Cardec gram did not show any evidence of vegetations or valvular dysfunction. There is increasing gradient across the aortic valve could be related to the high flow and anemia. Her generalized anemia could be related to hypoalbuminemia and anemia. I'll continue treating of the diuretics and antibiotics as directed by infectious disease. If her blood cultures are positive and there is a strong suspicion of endocarditis, a TIFF examination may be considered. However, transthoracic echocardiogram did not reveal any evidence of endocarditis at this time
[2016-09-06 17:21] LABS: Glucose,Whole Blood 111 mg/dL (75-99)
[2016-09-06] MEDS ORDERED: INSULIN LISPRO (humaLOG) 300 UNIT/3 ML VIAL SQ SCH (17:30)
--- NOTE | 2016-09-06 18:53 | P.PN ---
Subjective This is a 31-year-old female with a long history of IV drug abuse comes into the hospital from [place]. Patient apparently has had multiple MRSA infections. Patient states to have leukopenia and generalized swelling and symptoms of chills. Initial chest x-ray did evaluate some pulmonary vessel congestion and generalized fluid overload and was some concern over heart failure that is new onset. An echocardiogram was done was noted to have some increased flow across the aortic valve per cardiology. So far no blood cultures have been positive at this time. Patient has not has any fevers in the last 48 hours. Patient complains of pain diffusely all over the body however physical exam is not very consistent with it. Apparently has had some episodes of hypoglycemia on an insulin drip. Objective - Vital Signs Vital signs: Vital Signs Temp 97.5 F L 09/06/16 14:51 Pulse 98 09/06/16 16:22 Resp 18 09/06/16 14:51 BP 104/59 09/06/16 14:51 Pulse Ox 94 L 09/06/16 14:51 Intake & Output 09/05/16 09/06/16 09/06/16 18:59 06:59 18:59 Intake Total 1725.183 574.517 480 Output Total 3 Balance 1725.183 574.517 477 Weight 71.838 kg Intake: Intake, IV Titration 1275.183 18.517 Amount Insulin Regular 100 unit 25.183 In Sodium Chloride 0.9% 100 ml @ Titrate IV .Q0M [facility] Rx#:[id number] Insulin Regular 100 unit 18.517 In Sodium Chloride 0.9% 100 ml @ Titrate IV .Q0M [facility] Rx#:[id number] Vancomycin 1,250 mg In 1250 Sodium Chloride 0.9% 250 ml @ 125 mls/hr IVPB Q24H [facility] Rx#:[id number] Oral 450 556 480 Output: Urine 3 Other: # Voids 1 - Exam Physical exam Gen. appearance oriented 3 in no distress Neck is supple no JVD Lungs good air entry clear to auscultation no rhonchi or wheezing Heart S1-S2 heard regular rate and rhythm no murmurs appreciated Abdomen is soft nontender no organomegaly bowel sounds are intact Neurologically cranial nerves II-12 grossly intact no focal motor or sensory deficits noted Skin no areas of previous needle punctures noted. Some diffuse swelling noted. No vascular or immunologic phenomena of endocarditis appreciated. - Labs CBC & Chem 7: 09/06/16 06:32 09/06/16 06:32 Labs: Abnormal Lab Results - Last 24 Hours (Table) 09/05/16 09/05/16 09/06/16 Range/Units 19:41 23:49 02:54 WBC (3.8-10.6) k/uL RBC (3.80-5.40) m/uL Hgb (11.4-16.0) gm/dL Hct (34.0-46.0) % RDW (11.5-15.5) % Lymphocytes # (1.0-4.8) k/uL BUN (7-17) mg/dL Creatinine (0.52-1.04) mg/dL Glucose (74-99) mg/dL POC Glucose (mg/dL) 254 H 381 H 275 H (75-99) mg/dL Hemoglobin A1c (4.2-6.1) % 09/06/16 09/06/16 09/06/16 Range/Units 05:07 05:22 06:14 WBC (3.8-10.6) k/uL RBC (3.80-5.40) m/uL Hgb (11.4-16.0) gm/dL Hct (34.0-46.0) % RDW (11.5-15.5) % Lymphocytes # (1.0-4.8) k/uL BUN (7-17) mg/dL Creatinine (0.52-1.04) mg/dL Glucose (74-99) mg/dL POC Glucose (mg/dL) 44 L 46 L 146 H (75-99) mg/dL Hemoglobin A1c (4.2-6.1) % 09/06/16 09/06/16 09/06/16 Range/Units 06:32 06:32 06:32 WBC 3.0 L (3.8-10.6) k/uL RBC 3.10 L (3.80-5.40) m/uL Hgb 8.4 L (11.4-16.0) gm/dL Hct 26.0 L (34.0-46.0) % RDW 15.6 H (11.5-15.5) % Lymphocytes # 0.8 L (1.0-4.8) k/uL BUN 19 H (7-17) mg/dL Creatinine 1.26 H (0.52-1.04) mg/dL Glucose 151 H (74-99) mg/dL POC Glucose (mg/dL) (75-99) mg/dL Hemoglobin A1c 8.4 H (4.2-6.1) % 09/06/16 09/06/16 09/06/16 Range/Units 06:54 08:27 10:49 WBC (3.8-10.6) k/uL RBC (3.80-5.40) m/uL Hgb (11.4-16.0) gm/dL Hct (34.0-46.0) % RDW (11.5-15.5) % Lymphocytes # (1.0-4.8) k/uL BUN (7-17) mg/dL Creatinine (0.52-1.04) mg/dL Glucose (74-99) mg/dL POC Glucose (mg/dL) 168 H 282 H 458 H (75-99) mg/dL Hemoglobin A1c (4.2-6.1) % 09/06/16 09/06/16 09/06/16 Range/Units 11:40 12:26 13:09 WBC (3.8-10.6) k/uL RBC (3.80-5.40) m/uL Hgb (11.4-16.0) gm/dL Hct (34.0-46.0) % RDW (11.5-15.5) % Lymphocytes # (1.0-4.8) k/uL BUN (7-17) mg/dL Creatinine (0.52-1.04) mg/dL Glucose (74-99) mg/dL POC Glucose (mg/dL) 488 H 436 H 383 H (75-99) mg/dL Hemoglobin A1c (4.2-6.1) % 09/06/16 09/06/16 Range/Units 16:13 17:08 WBC (3.8-10.6) k/uL RBC (3.80-5.40) m/uL Hgb (11.4-16.0) gm/dL Hct (34.0-46.0) % RDW (11.5-15.5) % Lymphocytes # (1.0-4.8) k/uL BUN (7-17) mg/dL Creatinine (0.52-1.04) mg/dL Glucose (74-99) mg/dL POC Glucose (mg/dL) 111 H 111 H (75-99) mg/dL Hemoglobin A1c (4.2-6.1) % Assessment and Plan Plan: #1 fever of unknown origin #2 generalized swelling unknown etiology however improving at this time #3 chronic pain syndrome #4 diabetes mellitus on insulin therapy #5 history of psychiatric illnesses #6 hypoglycemia however was asymptomatic Plan Change regimen to Levemir 15 units in a.m. 20 units at bedtime 7 units 3 times a day with meals and NovoLog sliding scale for additional coverage Antibiotics per inf diseases. Transthoracic echocardiogram was reviewed. Does not appear the patient needs a TIFF at this time. Continue ongoing care
[2016-09-06 21:42] LABS: Glucose,Whole Blood 338 mg/dL (75-99)
[2016-09-06] MEDS: PREGABALIN 100 MG CAP PO SCH (21:51)
[2016-09-06] MEDS: INSULIN GLARGINE 100 UNIT/ML 10 ML VIAL SQ SCH (21:53)
[2016-09-06] MEDS: DAPTOmycin 500 MG in SODIUM CHLORIDE 0.9% 50 ML IV SCH (21:59)
--- NOTE | 2016-09-06 22:25 | P.PN ---
Subjective Principal diagnosis: History of abscess This is a 31-year-old female who presented to the hospital with shortness of breath. Chest x-ray showed pulmonary venous hypertension and interstitial edema. She has had recent weight gain of 20 pounds. She has a significant history of being at [facility] office and was treated for an abscess to the left wrist and right dorsal hand. She underwent I&D and was discharged. Patient suddenly went to [place] and after there she was started on Bactrim. She states the sites are much better. She also had a recent hospitalization at [facility] which time she was septic from MRSA infections and had pulmonary edema. She had abscesses to her scalp, left antecubital and right hand and foot. She states she was intubated at that time. 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 Patient was started on vancomycin and admitted to the [facility] floor. Blood sugars are currently running in the 500s. BUN 18 and creatinine 1.46 with GFR 42. Nephrology is on consult. Patient did present with tachycardia and hypotension. Influenza testing was negative for AFB. Hemoglobin A1c 8.9. Albumin 3.5. Blood culture showing no growth after 24 hours. Repeat chest x-ray is showing interstitial edema with pulmonary vascular congestion. Cardiology has evaluated. Echocardiogram is noted did not show evidence of endocarditis. Blood sugars improving. Objective - Vital Signs Vital signs: Vital Signs Temp 97.5 F L 09/06/16 20:00 Pulse 94 09/06/16 20:15 Resp 20 09/06/16 20:00 BP 117/71 09/06/16 20:00 Pulse Ox 93 L 09/06/16 20:00 Intake & Output 09/06/16 09/06/16 09/07/16 06:59 18:59 06:59 Intake Total 574.517 480 Output Total 3 Balance 574.517 477 Weight 71.838 kg Intake: Intake, IV Titration 18.517 Amount Insulin Regular 100 unit 18.517 In Sodium Chloride 0.9% 100 ml @ Titrate IV .Q0M [facility] Rx#:[id number] Oral 556 480 Output: Urine 3 Other: Voiding Method Toilet # Voids 1 - Exam Gen: This is a 31-year-old female. She is sitting up in bed and appears to be in no acute distress. Patient is very angry regarding her home insulin not been resumed and blood sugars running high. She is cooperative. HEENT: Head is atraumatic, normocephalic. Pupils equal, round. Sclerae is anicteric. Mucous members of the mouth are slightly dry. Dentition is in fair order. No thrush noted NECK: Supple. No JVD. No lymphadenopathy. No thyromegaly. LUNGS: Crackles to the bilateral bases. No intercostal retractions. HEART: Regular rate and rhythm. No murmur. ABDOMEN: Soft. Bowel sounds are present. No masses. No tenderness. EXTREMITIES: +2 bilateral pedal edema. Her cells pedis +2 bilaterally. Patient has healing wound to the left radial wrist and right dorsal hand. No drainage. No surrounding erythema or edema. Patient also has healing scars to the left antecubital and right wrist as well as scalp. NEUROLOGICAL: Patient is awake, alert - Labs CBC & Chem 7: 09/06/16 06:32 09/06/16 06:32 Labs: Abnormal Lab Results - Last 24 Hours (Table) 09/05/16 09/06/16 09/06/16 Range/Units 23:49 02:54 05:07 WBC (3.8-10.6) k/uL RBC (3.80-5.40) m/uL Hgb (11.4-16.0) gm/dL Hct (34.0-46.0) % RDW (11.5-15.5) % Lymphocytes # (1.0-4.8) k/uL BUN (7-17) mg/dL Creatinine (0.52-1.04) mg/dL Glucose (74-99) mg/dL POC Glucose (mg/dL) 381 H 275 H 44 L (75-99) mg/dL Hemoglobin A1c (4.2-6.1) % 09/06/16 09/06/16 09/06/16 Range/Units 05:22 06:14 06:32 WBC 3.0 L (3.8-10.6) k/uL RBC 3.10 L (3.80-5.40) m/uL Hgb 8.4 L (11.4-16.0) gm/dL Hct 26.0 L (34.0-46.0) % RDW 15.6 H (11.5-15.5) % Lymphocytes # 0.8 L (1.0-4.8) k/uL BUN (7-17) mg/dL Creatinine (0.52-1.04) mg/dL Glucose (74-99) mg/dL POC Glucose (mg/dL) 46 L 146 H (75-99) mg/dL Hemoglobin A1c (4.2-6.1) % 09/06/16 09/06/16 09/06/16 Range/Units 06:32 06:32 06:54 WBC (3.8-10.6) k/uL RBC (3.80-5.40) m/uL Hgb (11.4-16.0) gm/dL Hct (34.0-46.0) % RDW (11.5-15.5) % Lymphocytes # (1.0-4.8) k/uL BUN 19 H (7-17) mg/dL Creatinine 1.26 H (0.52-1.04) mg/dL Glucose 151 H (74-99) mg/dL POC Glucose (mg/dL) 168 H (75-99) mg/dL Hemoglobin A1c 8.4 H (4.2-6.1) % 09/06/16 09/06/16 09/06/16 Range/Units 08:27 10:49 11:40 WBC (3.8-10.6) k/uL RBC (3.80-5.40) m/uL Hgb (11.4-16.0) gm/dL Hct (34.0-46.0) % RDW (11.5-15.5) % Lymphocytes # (1.0-4.8) k/uL BUN (7-17) mg/dL Creatinine (0.52-1.04) mg/dL Glucose (74-99) mg/dL POC Glucose (mg/dL) 282 H 458 H 488 H (75-99) mg/dL Hemoglobin A1c (4.2-6.1) % 09/06/16 09/06/16 09/06/16 Range/Units 12:26 13:09 16:13 WBC (3.8-10.6) k/uL RBC (3.80-5.40) m/uL Hgb (11.4-16.0) gm/dL Hct (34.0-46.0) % RDW (11.5-15.5) % Lymphocytes # (1.0-4.8) k/uL BUN (7-17) mg/dL Creatinine (0.52-1.04) mg/dL Glucose (74-99) mg/dL POC Glucose (mg/dL) 436 H 383 H 111 H (75-99) mg/dL Hemoglobin A1c (4.2-6.1) % 09/06/16 09/06/16 Range/Units 17:08 21:33 WBC (3.8-10.6) k/uL RBC (3.80-5.40) m/uL Hgb (11.4-16.0) gm/dL Hct (34.0-46.0) % RDW (11.5-15.5) % Lymphocytes # (1.0-4.8) k/uL BUN (7-17) mg/dL Creatinine (0.52-1.04) mg/dL Glucose (74-99) mg/dL POC Glucose (mg/dL) 111 H 338 H (75-99) mg/dL Hemoglobin A1c (4.2-6.1) % Laboratory Results WBC 3.0 k/uL (3.8-10.6) L 09/06/16 06:32 RBC 3.10 m/uL (3.80-5.40) L 09/06/16 06:32 Hgb 8.4 gm/dL (11.4-16.0) L 09/06/16 06:32 Hct 26.0 % (34.0-46.0) L 09/06/16 06:32 MCV 83.8 fL (80.0-100.0) 09/06/16 06:32 MCH 27.1 pg (25.0-35.0) 09/06/16 06:32 MCHC 32.3 g/dL (31.0-37.0) 09/06/16 06:32 RDW 15.6 % (11.5-15.5) H 09/06/16 06:32 Plt Count 241 k/uL (150-450) 09/06/16 06:32 Neutrophils % 56 % 09/06/16 06:32 Lymphocytes % 27 % 09/06/16 06:32 Monocytes % 8 % 09/06/16 06:32 Eosinophils % 4 % 09/06/16 06:32 Basophils % 1 % 09/06/16 06:32 Neutrophils # 1.7 k/uL (1.3-7.7) 09/06/16 06:32 Lymphocytes # 0.8 k/uL (1.0-4.8) L 09/06/16 06:32 Monocytes # 0.2 k/uL (0-1.0) 09/06/16 06:32 Eosinophils # 0.1 k/uL (0-0.7) 09/06/16 06:32 Basophils # 0.0 k/uL (0-0.2) 09/06/16 06:32 Hypochromasia Slight 09/06/16 06:32 Poikilocytosis Slight 09/06/16 06:32 PT 11.9 sec (9.0-12.0) 09/03/16 15:55 INR 1.2 (<1.1) 09/03/16 15:55 APTT 31.6 sec (22.0-30.0) H 09/03/16 15:55 Sodium 140 mmol/L (137-145) 09/06/16 06:32 Potassium 5.1 mmol/L (3.5-5.1) 09/06/16 06:32 Chloride 105 mmol/L (98-107) 09/06/16 06:32 Carbon Dioxide 25 mmol/L (22-30) 09/06/16 06:32 Anion Gap 10 mmol/L 09/06/16 06:32 BUN 19 mg/dL (7-17) H 09/06/16 06:32 Creatinine 1.26 mg/dL (0.52-1.04) H 09/06/16 06:32 Est GFR (MDRD) Af Amer >60 (>60 ml/min/1.73 sqM) 09/06/16 06:32 Est GFR (MDRD) Non-Af 50 (>60 ml/min/1.73 sqM) 09/06/16 06:32 Glucose 151 mg/dL (74-99) H 09/06/16 06:32 POC Glucose (mg/dL) 338 mg/dL (75-99) H 09/06/16 21:33 POC Glu [employer]or ID Acacia Wolf 09/06/16 21:[address] Glu mg/dL 194 mg/dL 09/06/16 06:32 Hemoglobin A1c 8.4 % (4.2-6.1) H 09/06/16 06:32 Calcium 9.1 mg/dL (8.4-10.2) 09/06/16 06:32 Total Bilirubin 0.4 mg/dL (0.2-1.3) 09/03/16 15:55 AST 26 U/L (14-36) 09/03/16 15:55 ALT 30 U/L (9-52) 09/03/16 15:55 Alkaline Phosphatase 115 U/L (38-126) 09/03/16 15:55 Troponin I <0.012 ng/mL (0.000-0.034) 09/03/16 15:55 NT-Pro-B Natriuret Pep 826 pg/mL 09/03/16 15:55 Total Protein 7.0 g/dL (6.3-8.2) 09/03/16 15:55 Albumin 3.5 g/dL (3.5-5.0) 09/03/16 15:55 Urine Color Light Yellow 09/03/16 15:55 Urine Appearance Clear (Clear) 09/03/16 15:55 Urine pH 7.0 (5.0-8.0) 09/03/16 15:55 Ur Specific [place] 1.006 (1.001-1.035) 09/03/16 15:55 Urine Protein Negative (Negative) 09/03/16 15:55 Urine Glucose (UA) Negative (Negative) 09/03/16 15:55 Urine Ketones Negative (Negative) 09/03/16 15:55 Urine Blood Negative (Negative) 09/03/16 15:55 Urine Nitrate Negative (Negative) 09/03/16 15:55 Urine Bilirubin Negative (Negative) 09/03/16 15:55 Urine Urobilinogen <2.0 mg/dL (<2.0) 09/03/16 15:55 Ur Leukocyte Esterase Negative (Negative) 09/03/16 15:55 Influenza Type A RNA Not Detected (Not Detectd) 09/03/16 15:55 Influenza Type B (PCR) Not Detected (Not Detectd) 09/03/16 15:55 Microbiology 09/04/16 01:43 Blood Blood Culture - Preliminary No Growth after 48 hours Echocardiogram milan reveal evidence of endocarditis. Assessment and Plan (1) History of MRSA infection Narrative/Plan: 31-year-old woman presents to Hospital with evidence of significant hyperglycemia and difficulty with pain and difficulty regarding her history of injection drug use. Is a difficulty with abscess on her bilateral hands. Positive from injection sites. The been incision and drained already. In her showing steady improvement. If cultures remain negative as expected antibiotic therapy may be transitioned to doxycycline to complete a 100 mg orally twice per day course of therapy for 7 days. Local wound care with mupirocin can be continued Status: Acute
[2016-09-07] MEDS: MUPIROCIN 2% OINT 22 GM TUBE TOPICAL SCH ×3 (02:16→20:30)
[2016-09-07 02:24] LABS: Glucose,Whole Blood 248 mg/dL (75-99)
[2016-09-07] MEDS: INSULIN LISPRO (humaLOG) 300 UNIT/3 ML VIAL SQ SCH ×9 (02:25→20:31)
[2016-09-07] MEDS: IPRATROPIUM-ALBUTEROL 3 ML NEB INHALATION SCH ×4 (07:47→19:13)
[2016-09-07 07:48] LABS: Glucose,Whole Blood 103 mg/dL (75-99)
[2016-09-07] MEDS: INSULIN GLARGINE 100 UNIT/ML 10 ML VIAL SQ SCH ×2 (09:26→20:41)
[2016-09-07] MEDS: GABAPENTIN 300 MG CAP PO SCH ×3 (09:28→20:30)
[2016-09-07] MEDS: ALPRAZolam 0.5 MG TAB PO PRN ×4 (09:28→22:37)
[2016-09-07] MEDS: QUEtiapine 50 MG TAB PO SCH ×4 (09:30→20:30)
[2016-09-07] MEDS: PARoxetine 20 MG TAB PO SCH (09:30)
[2016-09-07] MEDS: FUROSEMIDE 10 MG/ML 4 ML VIAL IV SCH (09:30)
[2016-09-07] MEDS: HYDROcodone/APAP 5-325MG 1 EACH TAB PO PRN ×3 (09:36→22:38)
[2016-09-07 10:36] LABS: Glucose,Whole Blood 380 mg/dL (75-99)
[2016-09-07] MEDS: ONDANSETRON 4 MG/2 ML VIAL IVP PRN ×2 (10:51→19:01)
[2016-09-07 11:48] LABS: Basophils # (A) 0.1 k/uL (0-0.2); Basophils % (A) 2 %; CH 26.9; CHCM 30.6; Eosinophils # (A) 0.2 k/uL (0-0.7); Eosinophils % (A) 3 %; HCT 32.4 % (34.0-46.0); HDW 3.43; HGB 9.8 gm/dL (11.4-16.0); Hypochromasia Marked; Luc # (Auto) 0.16; Luc % (Auto) 3; Lymphocytes # (A) 1.1 k/uL (1.0-4.8); Lymphocytes % (A) 20 %; MCH 26.8 pg (25.0-35.0); MCHC 30.3 g/dL (31.0-37.0); MCV 88.4 fL (80.0-100.0); Mean Platelet Volume 7.5; Monocytes # (A) 0.3 k/uL (0-1.0); Monocytes % (A) 4 %; Neutrophils # (A) 3.8 k/uL (1.3-7.7); Neutrophils % (A) 68 %; Poikilocytosis Slight; RBC 3.67 m/uL (3.80-5.40); RDW 15.6 % (11.5-15.5); WBC 5.6 k/uL (3.8-10.6); WBC (Perox) 5.77
[2016-09-07 11:59] LABS: Calcium 9.8 mg/dL (8.4-10.2)
[2016-09-07 12:16] LABS: Glucose,Whole Blood 382 mg/dL (75-99)
[2016-09-07] MEDS ORDERED: SODIUM POLYSTYRENE SULFONATE 15 GM/60 ML BOTTLE PO STA (13:46)
[2016-09-07] MEDS ORDERED: INSULIN REGULAR 100 UNIT/ML VIAL IV ONE (13:46)
[2016-09-07 14:13] LABS: Hemoglobin A1C 8.4 % (4.2-6.1)
[2016-09-07] MEDS ORDERED: RIVAROXABAN 15 MG TAB PO STA (16:35)
[2016-09-07 17:26] LABS: Glucose,Whole Blood 47 mg/dL (75-99)
[2016-09-07 17:34] LABS: Glucose,Whole Blood 72 mg/dL (75-99)
--- NOTE | 2016-09-07 20:10 | P.PN ---
Subjective This is a 31-year-old female with a long history of IV drug abuse comes into the hospital from [facility]. Patient apparently has had multiple MRSA infections. Patient states to have leukopenia and generalized swelling and symptoms of chills. Initial chest x-ray did evaluate some pulmonary vessel congestion and generalized fluid overload and was some concern over heart failure that is new onset. An echocardiogram was done was noted to have some increased flow across the aortic valve per cardiology. So far no blood cultures have been positive at this time. Patient has not has any fevers in the last 48 hours. Patient complains of pain diffusely all over the body however physical exam is not very consistent with it. Apparently has had some episodes of hypoglycemia on an insulin drip. 09/07/16 No new overnight events. K was elevated. EKG was within normal limits. Denies having fevers, chills, nasuea, vomiting. Objective - Vital Signs Vital signs: Vital Signs Temp 98 F 09/07/16 15:00 Pulse 86 09/07/16 19:13 Resp 18 09/07/16 15:00 BP 111/58 09/07/16 15:00 Pulse Ox 96 09/07/16 15:00 Intake & Output 09/07/16 09/07/16 09/08/16 06:59 18:59 06:59 Output Total 200 Balance -200 Weight 70.76 kg Output: Urine 200 Other: Voiding Method Toilet Toilet # Voids 2 2 - Exam Physical exam Gen. appearance oriented 3 in no distress Neck is supple no JVD Lungs good air entry clear to auscultation no rhonchi or wheezing Heart S1-S2 heard regular rate and rhythm no murmurs appreciated Abdomen is soft nontender no organomegaly bowel sounds are intact Neurologically cranial nerves II-12 grossly intact no focal motor or sensory deficits noted Skin no areas of previous needle punctures noted. Some diffuse swelling noted. No vascular or immunologic phenomena of endocarditis appreciated. - Labs CBC & Chem 7: 09/07/16 11:03 09/07/16 14:03 Labs: Abnormal Lab Results - Last 24 Hours (Table) 09/06/16 09/07/16 09/07/16 Range/Units 21:33 02:15 07:39 RBC (3.80-5.40) m/uL Hgb (11.4-16.0) gm/dL Hct (34.0-46.0) % MCHC (31.0-37.0) g/dL RDW (11.5-15.5) % Sodium (137-145) mmol/L Potassium (3.5-5.1) mmol/L Carbon Dioxide (22-30) mmol/L BUN (7-17) mg/dL Creatinine (0.52-1.04) mg/dL Glucose (74-99) mg/dL POC Glucose (mg/dL) 338 H 248 H 103 H (75-99) mg/dL Hemoglobin A1c (4.2-6.1) % 09/07/16 09/07/16 09/07/16 Range/Units 10:28 11:03 11:03 RBC 3.67 L (3.80-5.40) m/uL Hgb 9.8 L (11.4-16.0) gm/dL Hct 32.4 L (34.0-46.0) % MCHC 30.3 L (31.0-37.0) g/dL RDW 15.6 H (11.5-15.5) % Sodium 135 L (137-145) mmol/L Potassium 7.0 H* (3.5-5.1) mmol/L Carbon Dioxide 20 L (22-30) mmol/L BUN 22 H (7-17) mg/dL Creatinine 1.27 H (0.52-1.04) mg/dL Glucose 392 H (74-99) mg/dL POC Glucose (mg/dL) 380 H (75-99) mg/dL Hemoglobin A1c (4.2-6.1) % 09/07/16 09/07/16 09/07/16 Range/Units 12:10 12:11 17:10 RBC (3.80-5.40) m/uL Hgb (11.4-16.0) gm/dL Hct (34.0-46.0) % MCHC (31.0-37.0) g/dL RDW (11.5-15.5) % Sodium (137-145) mmol/L Potassium (3.5-5.1) mmol/L Carbon Dioxide (22-30) mmol/L BUN (7-17) mg/dL Creatinine (0.52-1.04) mg/dL Glucose (74-99) mg/dL POC Glucose (mg/dL) 382 H 47 L (75-99) mg/dL Hemoglobin A1c 8.4 H (4.2-6.1) % 09/07/16 Range/Units 17:30 RBC (3.80-5.40) m/uL Hgb (11.4-16.0) gm/dL Hct (34.0-46.0) % MCHC (31.0-37.0) g/dL RDW (11.5-15.5) % Sodium (137-145) mmol/L Potassium (3.5-5.1) mmol/L Carbon Dioxide (22-30) mmol/L BUN (7-17) mg/dL Creatinine (0.52-1.04) mg/dL Glucose (74-99) mg/dL POC Glucose (mg/dL) 72 L (75-99) mg/dL Hemoglobin A1c (4.2-6.1) % Assessment and Plan Plan: #1 fever of unknown origin #2 generalized swelling unknown etiology however improving at this time #3 chronic pain syndrome #4 diabetes mellitus on insulin therapy #5 history of psychiatric illnesses #6 hypoglycemia however was asymptomatic Plan Pt is brittle diabetic. Multiple episodes of hypoglycemia Discussed pt needs to see a transmissions systems operator for eval of a pump placement. Will dc back to [facility] on doxycycline for 10days will be maintained on low dose diuretics, unknown etiology of the swelling. Pain is controlled. Final cultures negative
[2016-09-07] MEDS: PREGABALIN 100 MG CAP PO SCH (20:30)
[2016-09-07 20:33] LABS: Glucose,Whole Blood 419 mg/dL (75-99)
[2016-09-07] MEDS ORDERED: INSULIN LISPRO (humaLOG) 300 UNIT/3 ML VIAL SQ ONE ×2 (20:36→21:59)
[2016-09-07 21:20] LABS: Glucose,Whole Blood 516 mg/dL (75-99)
--- NOTE | 2016-09-07 22:19 | P.PN ---
Subjective Principal diagnosis: History of abscess This is a 31-year-old female who presented to the hospital with shortness of breath. Chest x-ray showed pulmonary venous hypertension and interstitial edema. She has had recent weight gain of 20 pounds. She has a significant history of being at [facility] office and was treated for an abscess to the left wrist and right dorsal hand. She underwent I&D and was discharged. Patient suddenly went to [place] and after there she was started on Bactrim. She states the sites are much better. She also had a recent hospitalization at [facility] which time she was septic from MRSA infections and had pulmonary edema. She had abscesses to her scalp, left antecubital and right hand and foot. She states she was intubated at that time. 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 Patient was started on vancomycin and admitted to the [facility] floor. Blood sugars are currently running in the 500s. BUN 18 and creatinine 1.46 with GFR 42. Nephrology is on consult. Patient did present with tachycardia and hypotension. Influenza testing was negative for AFB. Hemoglobin A1c 8.9. Albumin 3.5. Blood culture showing no growth after 24 hours. Repeat chest x-ray is showing interstitial edema with pulmonary vascular congestion. Cardiology has evaluated. Echocardiogram is noted did not show evidence of endocarditis. Blood sugars improving. Objective - Vital Signs Vital signs: Vital Signs Temp 98 F 09/07/16 15:00 Pulse 86 09/07/16 19:13 Resp 18 09/07/16 15:00 BP 111/58 09/07/16 15:00 Pulse Ox 96 09/07/16 15:00 Intake & Output 09/07/16 09/07/16 09/08/16 06:59 18:59 06:59 Output Total 200 Balance -200 Weight 70.76 kg Output: Urine 200 Other: Voiding Method Toilet Toilet # Voids 2 2 - Exam Gen: This is a 31-year-old female. She is sitting up in bed and appears to be in no acute distress. Patient is very angry regarding her home insulin not been resumed and blood sugars running high. She is cooperative. HEENT: Head is atraumatic, normocephalic. Pupils equal, round. Sclerae is anicteric. Mucous members of the mouth are slightly dry. Dentition is in fair order. No thrush noted NECK: Supple. No JVD. No lymphadenopathy. No thyromegaly. LUNGS: Crackles to the bilateral bases. No intercostal retractions. HEART: Regular rate and rhythm. No murmur. ABDOMEN: Soft. Bowel sounds are present. No masses. No tenderness. EXTREMITIES: +2 bilateral pedal edema. Her cells pedis +2 bilaterally. Patient has healing wound to the left radial wrist and right dorsal hand. No drainage. No surrounding erythema or edema. Patient also has healing scars to the left antecubital and right wrist as well as scalp. NEUROLOGICAL: Patient is awake, alert - Labs CBC & Chem 7: 09/07/16 11:03 09/07/16 14:03 Labs: Abnormal Lab Results - Last 24 Hours (Table) 09/07/16 09/07/16 09/07/16 Range/Units 02:15 07:39 10:28 RBC (3.80-5.40) m/uL Hgb (11.4-16.0) gm/dL Hct (34.0-46.0) % MCHC (31.0-37.0) g/dL RDW (11.5-15.5) % Sodium (137-145) mmol/L Potassium (3.5-5.1) mmol/L Carbon Dioxide (22-30) mmol/L BUN (7-17) mg/dL Creatinine (0.52-1.04) mg/dL Glucose (74-99) mg/dL POC Glucose (mg/dL) 248 H 103 H 380 H (75-99) mg/dL Hemoglobin A1c (4.2-6.1) % 09/07/16 09/07/16 09/07/16 Range/Units 11:03 11:03 12:10 RBC 3.67 L (3.80-5.40) m/uL Hgb 9.8 L (11.4-16.0) gm/dL Hct 32.4 L (34.0-46.0) % MCHC 30.3 L (31.0-37.0) g/dL RDW 15.6 H (11.5-15.5) % Sodium 135 L (137-145) mmol/L Potassium 7.0 H* (3.5-5.1) mmol/L Carbon Dioxide 20 L (22-30) mmol/L BUN 22 H (7-17) mg/dL Creatinine 1.27 H (0.52-1.04) mg/dL Glucose 392 H (74-99) mg/dL POC Glucose (mg/dL) (75-99) mg/dL Hemoglobin A1c 8.4 H (4.2-6.1) % 09/07/16 09/07/16 09/07/16 Range/Units 12:11 17:10 17:30 RBC (3.80-5.40) m/uL Hgb (11.4-16.0) gm/dL Hct (34.0-46.0) % MCHC (31.0-37.0) g/dL RDW (11.5-15.5) % Sodium (137-145) mmol/L Potassium (3.5-5.1) mmol/L Carbon Dioxide (22-30) mmol/L BUN (7-17) mg/dL Creatinine (0.52-1.04) mg/dL Glucose (74-99) mg/dL POC Glucose (mg/dL) 382 H 47 L 72 L (75-99) mg/dL Hemoglobin A1c (4.2-6.1) % 09/07/16 09/07/16 Range/Units 20:23 21:16 RBC (3.80-5.40) m/uL Hgb (11.4-16.0) gm/dL Hct (34.0-46.0) % MCHC (31.0-37.0) g/dL RDW (11.5-15.5) % Sodium (137-145) mmol/L Potassium (3.5-5.1) mmol/L Carbon Dioxide (22-30) mmol/L BUN (7-17) mg/dL Creatinine (0.52-1.04) mg/dL Glucose (74-99) mg/dL POC Glucose (mg/dL) 419 H 516 H (75-99) mg/dL Hemoglobin A1c (4.2-6.1) % Laboratory Results WBC 5.6 k/uL (3.8-10.6) 09/07/16 11:03 RBC 3.67 m/uL (3.80-5.40) L 09/07/16 11:03 Hgb 9.8 gm/dL (11.4-16.0) L 09/07/16 11:03 Hct 32.4 % (34.0-46.0) L 09/07/16 11:03 MCV 88.4 fL (80.0-100.0) 09/07/16 11:03 MCH 26.8 pg (25.0-35.0) 09/07/16 11:03 MCHC 30.3 g/dL (31.0-37.0) L 09/07/16 11:03 RDW 15.6 % (11.5-15.5) H 09/07/16 11:03 Plt Count 340 k/uL (150-450) 09/07/16 11:03 Neutrophils % 68 % 09/07/16 11:03 Lymphocytes % 20 % 09/07/16 11:03 Monocytes % 4 % 09/07/16 11:03 Eosinophils % 3 % 09/07/16 11:03 Basophils % 2 % 09/07/16 11:03 Neutrophils # 3.8 k/uL (1.3-7.7) 09/07/16 11:03 Lymphocytes # 1.1 k/uL (1.0-4.8) 09/07/16 11:03 Monocytes # 0.3 k/uL (0-1.0) 09/07/16 11:03 Eosinophils # 0.2 k/uL (0-0.7) 09/07/16 11:03 Basophils # 0.1 k/uL (0-0.2) 09/07/16 11:03 Hypochromasia Marked 09/07/16 11:03 Poikilocytosis Slight 09/07/16 11:03 PT 11.9 sec (9.0-12.0) 09/03/16 15:55 INR 1.2 (<1.1) 09/03/16 15:55 APTT 31.6 sec (22.0-30.0) H 09/03/16 15:55 Sodium 135 mmol/L (137-145) L 09/07/16 11:03 Potassium 5.1 mmol/L (3.5-5.1) 09/07/16 14:03 Chloride 98 mmol/L (98-107) 09/07/16 11:03 Carbon Dioxide 20 mmol/L (22-30) L 09/07/16 11:03 Anion Gap 17 mmol/L 09/07/16 11:03 BUN 22 mg/dL (7-17) H 09/07/16 11:03 Creatinine 1.27 mg/dL (0.52-1.04) H 09/07/16 11:03 Est GFR (MDRD) Af Amer 59 (>60 ml/min/1.73 sqM) 09/07/16 11:03 Est GFR (MDRD) Non-Af 49 (>60 ml/min/1.73 sqM) 09/07/16 11:03 Glucose 392 mg/dL (74-99) H 09/07/16 11:03 POC Glucose (mg/dL) 516 mg/dL (75-99) H 09/07/16 21:16 POC Glu Boatbuilder Supervisor Kallie Flores 09/07/16 21:[address] Glu mg/dL 194 mg/dL 09/07/16 12:10 Hemoglobin A1c 8.4 % (4.2-6.1) H 09/07/16 12:10 Calcium 9.8 mg/dL (8.4-10.2) 09/07/16 11:03 Total Bilirubin 0.4 mg/dL (0.2-1.3) 09/03/16 15:55 AST 26 U/L (14-36) 09/03/16 15:55 ALT 30 U/L (9-52) 09/03/16 15:55 Alkaline Phosphatase 115 U/L (38-126) 09/03/16 15:55 Troponin I <0.012 ng/mL (0.000-0.034) 09/03/16 15:55 NT-Pro-B Natriuret Pep 826 pg/mL 09/03/16 15:55 Total Protein 7.0 g/dL (6.3-8.2) 09/03/16 15:55 Albumin 3.5 g/dL (3.5-5.0) 09/03/16 15:55 Urine Color Light Yellow 09/03/16 15:55 Urine Appearance Clear (Clear) 09/03/16 15:55 Urine pH 7.0 (5.0-8.0) 09/03/16 15:55 Ur Specific [place] 1.006 (1.001-1.035) 09/03/16 15:55 Urine Protein Negative (Negative) 09/03/16 15:55 Urine Glucose (UA) Negative (Negative) 09/03/16 15:55 Urine Ketones Negative (Negative) 09/03/16 15:55 Urine Blood Negative (Negative) 09/03/16 15:55 Urine Nitrate Negative (Negative) 09/03/16 15:55 Urine Bilirubin Negative (Negative) 09/03/16 15:55 Urine Urobilinogen <2.0 mg/dL (<2.0) 09/03/16 15:55 Ur Leukocyte Esterase Negative (Negative) 09/03/16 15:55 Influenza Type A RNA Not Detected (Not Detectd) 09/03/16 15:55 Influenza Type B (PCR) Not Detected (Not Detectd) 09/03/16 15:55 Microbiology 09/04/16 01:43 Blood Blood Culture - Preliminary No Growth after 72 hours Assessment and Plan (1) History of MRSA infection Narrative/Plan: 31-year-old woman presents to Hospital with evidence of significant hyperglycemia and difficulty with pain and difficulty regarding her history of injection drug use. Is a difficulty with abscess on her bilateral hands. Positive from injection sites. The been incision and drained already. In her showing steady improvement. If cultures remain negative as expected antibiotic therapy may be transitioned to doxycycline to complete a 100 mg orally twice per day course of therapy for 7 days. Local wound care with mupirocin can be continued Patient is improving. If blood sugars continue to improve may transition to oral antibiotic therapy tomorrow. Status: Acute
[2016-09-07 22:21] LABS: Glucose,Whole Blood 399 mg/dL (75-99)
[2016-09-07 23:19] LABS: Glucose,Whole Blood 317 mg/dL (75-99)
[2016-09-08 01:51] LABS: Glucose,Whole Blood 49 mg/dL (75-99)
[2016-09-08 02:29] LABS: Glucose,Whole Blood 55 mg/dL (75-99)
[2016-09-08 02:37] LABS: Glucose,Whole Blood 104 mg/dL (75-99)
[2016-09-08 03:19] VITALS: RESP 16
[2016-09-08] MEDS: DAPTOmycin 500 MG in SODIUM CHLORIDE 0.9% 50 ML IV SCH (04:48)
[2016-09-08] MEDS: INSULIN LISPRO (humaLOG) 300 UNIT/3 ML VIAL SQ SCH ×5 (04:49→12:51)
[2016-09-08] MEDS: ALPRAZolam 0.5 MG TAB PO PRN ×2 (06:22→12:49)
[2016-09-08] MEDS: HYDROcodone/APAP 5-325MG 1 EACH TAB PO PRN ×2 (06:22→12:49)
[2016-09-08 07:13] LABS: Glucose,Whole Blood 188 mg/dL (75-99)
[2016-09-08 07:42] LABS: Calcium 9.6 mg/dL (8.4-10.2); Potassium 5.1 mmol/L (3.5-5.1)
[2016-09-08] MEDS: FUROSEMIDE 10 MG/ML 4 ML VIAL IV SCH (08:36)
[2016-09-08] MEDS: GABAPENTIN 300 MG CAP PO SCH ×2 (08:36→16:25)
[2016-09-08] MEDS: PARoxetine 20 MG TAB PO SCH (08:36)
[2016-09-08] MEDS: QUEtiapine 50 MG TAB PO SCH ×2 (08:36→12:52)
[2016-09-08] MEDS: MUPIROCIN 2% OINT 22 GM TUBE TOPICAL SCH (08:37)
[2016-09-08 08:44] LABS: Aty Lym Flag Slight; CH 26.7; CHCM 30.9; HCT 31.7 % (34.0-46.0); HDW 3.43; HGB 9.8 gm/dL (11.4-16.0); Hypochromasia Marked; MCH 26.7 pg (25.0-35.0); MCHC 30.8 g/dL (31.0-37.0); MCV 86.9 fL (80.0-100.0); Mean Platelet Volume 7.4; Poikilocytosis Slight; RBC 3.65 m/uL (3.80-5.40); RDW 15.7 % (11.5-15.5); WBC 4.5 k/uL (3.8-10.6)
[2016-09-08] MEDS: IPRATROPIUM-ALBUTEROL 3 ML NEB INHALATION SCH ×3 (08:48→16:25)
[2016-09-08] MEDS: INSULIN GLARGINE 100 UNIT/ML 10 ML VIAL SQ SCH (08:51)
[2016-09-08 10:24] LABS: Add Differential Manual Differential
[2016-09-08 10:30] LABS: Nucleated Red Blood Cells 0 /100 WBC (0-0); Total Cells Counted 100
[2016-09-08 10:31] LABS: Manual Review Performed
[2016-09-08 11:46] LABS: Glucose,Whole Blood 355 mg/dL (75-99)
[2016-09-08 15:06] VITALS: BP 102/63; PULSE 121; TEMP 97.8
--- NOTE | 2016-09-27 10:54 | P.DS ---
Providers Date of admission: 09/05/16 12:33 Attending physician: Temi Godinez Primary care physician: Stated None Hospital Course: This is a 31-year-old female with a long history of IV drug abuse comes into the hospital from [facility]. Patient apparently has had multiple MRSA infections. Patient states to have leukopenia and generalized swelling and symptoms of chills. Initial chest x-ray did evaluate some pulmonary vessel congestion and generalized fluid overload and was some concern over heart failure that is new onset. An echocardiogram was done was noted to have some increased flow across the aortic valve per cardiology. So far no blood cultures have been positive at this time. Patient has not has any fevers in the last 48 hours. Patient complains of pain diffusely all over the body however physical exam is not very consistent with it. Apparently has had some episodes of hypoglycemia on an insulin drip. 09/07/16 No new overnight events. K was elevated. EKG was within normal limits. Denies having fevers, chills, nasuea, vomiting. Objective - Vital Signs Vital signs: Vital Signs Temp 98 F 09/07/16 15:00 Pulse 86 09/07/16 19:13 Resp 18 09/07/16 15:00 BP 111/58 09/07/16 15:00 Pulse Ox 96 09/07/16 15:00 Intake & Output 09/07/16 09/07/16 09/08/16 06:59 18:59 06:59 Output Total 200 Balance -200 Weight 70.76 kg Output: Urine 200 Other: Voiding Method Toilet Toilet # Voids 2 2 - Exam Physical exam Gen. appearance oriented 3 in no distress Neck is supple no JVD Lungs good air entry clear to auscultation no rhonchi or wheezing Heart S1-S2 heard regular rate and rhythm no murmurs appreciated Abdomen is soft nontender no organomegaly bowel sounds are intact Neurologically cranial nerves II-12 grossly intact no focal motor or sensory deficits noted Skin no areas of previous needle punctures noted. Some diffuse swelling noted. No vascular or immunologic phenomena of endocarditis appreciated. Assessment and Plan Plan: #1 fever of unknown origin #2 generalized swelling unknown etiology however improving at this time #3 chronic pain syndrome #4 diabetes mellitus on insulin therapy #5 history of psychiatric illnesses #6 hypoglycemia however was asymptomatic Plan Pt is brittle diabetic. Multiple episodes of hypoglycemia Discussed pt needs to see a associate attorney for eval of a pump placement. Will dc back to [facility] on doxycycline for 10days will be maintained on low dose diuretics, unknown etiology of the swelling. Pain is controlled. Final cultures negative Patient Condition at Discharge: Stable Plan - Discharge Summary New Discharge Prescriptions: ALPRAZolam [Xanax] 1 mg PO TID PRN #20 tablet PRN Reason: Anxiety Doxycycline Hyclate [Vibramycin] 100 mg PO BID #20 cap Furosemide [Lasix] 20 mg PO DAILY #30 tab HYDROcodone/APAP 5-325MG [Hackberry 5-325] 1 each PO Q6HR PRN #20 tab PRN Reason: Pain Rivaroxaban [Xarelto Starter Pack] 1 each PO DIRECTED #1 pkg Discharge Medication List Acetaminophen Tab [Tylenol] 650 mg PO Q4H PRN 09/03/16 [History] Gabapentin [Neurontin] 300 mg PO TID 09/03/16 [History] PARoxetine HCL [Paxil] 60 mg PO DAILY 09/03/16 [History] Pregabalin [Lyrica] 100 mg PO HS 09/03/16 [History] QUEtiapine [SEROquel] 50 mg PO TID 09/03/16 [History] QUEtiapine [SEROquel] 100 mg PO HS 09/03/16 [History] Insulin Glargine [Lantus] 15 unit SQ AC-BRKFST 09/05/16 [History] Insulin Glargine [Lantus] 20 unit SQ HS 09/05/16 [History] Insulin Lispro [humaLOG] 0 - 8 units SQ ACHS 09/05/16 [History] ALPRAZolam [Xanax] 1 mg PO TID PRN #20 tablet 09/07/16 [Rx] Doxycycline Hyclate [Vibramycin] 100 mg PO BID #20 cap 09/07/16 [Rx] Furosemide [Lasix] 20 mg PO DAILY #30 tab 09/07/16 [Rx] HYDROcodone/APAP 5-325MG [Hackberry 5-325] 1 each PO Q6HR PRN #20 tab 09/07/16 [Rx] INSULIN LISPRO (humaLOG) [humaLOG (formulary)] 7 unit SQ AC-TID vial 09/07/16 [ Rx] Mupirocin 2% Oint [Bactroban 2% Oint] 1 applic TOPICAL BID applic 09/07/16 [Rx] Rivaroxaban [Xarelto Starter Pack] 1 each PO DIRECTED #1 pkg 09/08/16 [Rx] Follow up Appointment(s)/Referral(s): Arnaldo Estrada MD [REFERRING] - 09/14/16 1:30 pm (Please bring photo id and insurance card.) Catherine Odom MD [STAFF PHYSICIAN] - 1 Week (Office open Sunday-. Please call office sunday to make appointment for endocrinolgy care.) Patient Instructions/Handouts: MRSA (Methicillin Resistant Staphylococcus Aureus) (DC), Diabetic Ketoacidosis (DC), Foot Care for People with Diabetes (DC ), Type 1 Diabetes in Adults (DC), Hypoglycemia in a Person with Diabetes (DC), Basic Carbohydrate Counting (DC) Discharge Disposition: HOME SELF-CARE
--- NOTE | 2016-10-02 15:34 | CDI ---
In responding to this query, please exercise your independent professional judgment. The [facility] Coding Staff and Clinical Documentation Specialists appreciate your assistance in clarifying documentation, maintaining compliance with coding guidelines, accurately documenting patients condition and capturing severity of illness. The fact that a question is asked does not imply that any particular answer is desired or expected. Communication forms are a method of clarifying documentation and are not made part of the Legal Health Record. Thank you in advance for your clarification. Last Revision, June 2015 Cris Erwin [address] [facility] [place] [address] Documentation Clarification Form Date: 10/02/2016 3:15:00 PM From: Hemalatha Munoz [facility]CS [facility] Admit Date: 09/05/2016 12:33:00 PM Patient Name: Lupis Suero Visit Number: [id number] Discharge Date: 09-08-16 Dr. Latrell Morris Please clarify sepsis with the below factors: History/Risk Factors: Dr. Cardenas Consultation on 09-05-16 states "Patient was having fever and tachycardia and relative hypotension and concern for sepsis". Constance Rahman NP-C Consultation 09-05-16 states "This is a 31 year old female presenting with sepsis with fever, tachycardia and hypotension....." IV Drug user, multiple abscesses, hypoalbuminemia, leukopenia, diabetes. WBC-normal Blood cultures--No growth after 144 hours Vitals signs--Pulse 116 on 09-04, 125 on 09-05, 110 on 09-07, 121 on 09-08-16. Blood pressures--86/49 on 09-03-16, 92/51 on 09-04-16, 99/60 on 09-06-16. O2 sats- -92% on 09-03-16, 92% on 09-04-16 and 86% on 09-05-16. Other Indicators: Fever of unknown origin, chills, history of sepsis, history of MRSA. Treatment: IV antibiotics, home on antibiotics ID Consult: Yes, Dr. Cardenas. In your professional opinion, can you please clarify if these findings signify one of the following conditions, whether the condition is POA, and cause, if known? SIRS, without underlying infectious process Sepsis Severe Sepsis Septic Shock Unable to determine Other, please specify * Identify the (suspected) organism * Link or clarify if there is associated (due to/with): - Organ failure - Shock SIRS Criteria: 2 or more of the following may indicate SIRS Temperature < 96.8F(36C) or > 101.0F (38C) Heart Rate > 90 bpm Respiratory Rate > 20 breaths/min or PaCO2 < 32 mmHg White Blood Cell Count > 12,000 or < 4,000 cells/mm3 or > 10% bands Please document in your progress notes and discharge summary in order to capture severity of illness and risk of mortality. Include clinical findings that support your diagnosis. FYI: Press F11 to launch patient chart. Place X here if this finding has no clinical significance, is not applicable or if you are not able to provide any additional documentation. TU
--- NOTE | 2016-10-02 15:54 | CDI ---
In responding to this query, please exercise your independent professional judgment. The [facility] Coding Staff and Clinical Documentation Specialists appreciate your assistance in clarifying documentation, maintaining compliance with coding guidelines, accurately documenting patients condition and capturing severity of illness. The fact that a question is asked does not imply that any particular answer is desired or expected. Communication forms are a method of clarifying documentation and are not made part of the Legal Health Record. Thank you in advance for your clarification. Last Revision, October 2015 Cris Erwin [address] [place] [address] Documentation Clarification Form Date: 10/02/2016 3:41:00 PM From: Hemalatha Munoz [facility] Admit Date: 09/05/2016 12:33:00 PM Patient Name: Lupis Suero Visit Number: [id number] Discharge Date: 09-08-16 Dr. Latrell Morris CHF is documented in the Discharge Summary as "....Initial CXR did evaluate some pulmonary vessel congestion and generalized fluid overload and there was some concern over heart failure that is new onset". Progress Note on 09-07-[address] Powers Progress Note on 09-05-16 states "SOB with generalized edema. R/O CHF acute exacerbation". Dr. Powers H&P states "Generalized edema, SOB. For evaluation. R/O renal disease or CHF". History/Risk Factors: DM uncontrolled, anemia chronic disease, multiple abscesses, IV drug user, hyponatremia, hyperkalemia, mental issues, hypoglycemia , fever, possible sepsis and possible renal failure BNP: 09-03-16 = 826 Echocardiogram Results: EF = 65-70% Chest X Ray: See above. Treatment: IV Lasix. Consults: Cardiology In your professional opinion, can you please clarify the acuity and type of CHF if known? Acute Chronic Acute on Chronic AND Systolic Diastolic Systolic and Diastolic Cor Pulmonale (Right Sided HF w/ Pulmonary HTN) Unable to determine Other, please specify If known, please specify if Heart Failure is due to: Hypertension Rheumatic Fever Please document in your progress notes and discharge summary in order to capture severity of illness and risk of mortality. Include clinical findings that support your diagnosis. FYI: Press F11 to launch patient chart. __x___ Place X here if this finding has no clinical significance, is not applicable or if you are not able to provide any additional documentation. MTDD
== END 2016-09-08 16:38 | disposition home or self-care (01) | DRG 872 ==
LOC: EC 14:06 → 3OBS 18:10 → 3SUR 09-04 09:25 → OBSVTOIN 09-05 12:33
PROVIDERS: ADMIT Internal Medicine; ATTEND Internal Medicine
DX: A41.02 Sepsis due to Methicillin resistant Staphylococcus aureus (principal); J81.1 Chronic pulmonary edema; N17.9 Acute kidney failure, unspecified; I95.9 Hypotension, unspecified; E11.42 Type 2 diabetes mellitus with diabetic polyneuropathy; E87.1 Hypo-osmolality and hyponatremia; E11.649 Type 2 diabetes mellitus with hypoglycemia without coma; L02.511 Cutaneous abscess of right hand; L02.413 Cutaneous abscess of right upper limb; L02.512 Cutaneous abscess of left hand; I27.2 Other secondary pulmonary hypertension; E87.70 Fluid overload, unspecified; E88.09 Other disorders of plasma-protein metabolism, not elsewhere classified; E11.65 Type 2 diabetes mellitus with hyperglycemia; E87.5 Hyperkalemia; D63.8 Anemia in other chronic diseases classified elsewhere; F41.9 Anxiety disorder, unspecified; F17.210 Nicotine dependence, cigarettes, uncomplicated; R53.1 Weakness; F31.9 Bipolar disorder, unspecified; N28.9 Disorder of kidney and ureter, unspecified; R01.1 Cardiac murmur, unspecified; R11.2 Nausea with vomiting, unspecified; R50.9 Fever, unspecified; F43.10 Post-traumatic stress disorder, unspecified; R06.02 Shortness of breath; G89.4 Chronic pain syndrome; F11.24 Opioid dependence with opioid-induced mood disorder; R00.0 Tachycardia, unspecified; D72.819 Decreased white blood cell count, unspecified; F19.10 Other psychoactive substance abuse, uncomplicated; F41.0 Panic disorder [episodic paroxysmal anxiety]; Z86.14 Personal history of Methicillin resistant Staphylococcus aureus infection; Z90.49 Acquired absence of other specified parts of digestive tract; Z65.3 Problems related to other legal circumstances; Z79.4 Long term (current) use of insulin; Z88.1 Allergy status to other antibiotic agents; Z88.5 Allergy status to narcotic agent; Z81.3 Family history of other psychoactive substance abuse and dependence; Z88.0 Allergy status to penicillin; Z88.8 Allergy status to other drugs, medicaments and biological substances; Z86.718 Personal history of other venous thrombosis and embolism; Z86.19 Personal history of other infectious and parasitic diseases; Z79.2 Long term (current) use of antibiotics; Z79.899 Other long term (current) drug therapy
CPT/HCPCS: 36415; 71020; 80048; 80053; 81003; 83036; 83880; 84132; 84484; 85025; 85610; 85730; 87040; 87502; 93005; 93306; 94640; 94760; 96361; 96365; 96366; 96367; 96375; 96376; 99285